=== PATIENT | male | born 1940 | race Caucasian/White ===

== ENCOUNTER 2019-10-31 17:50 | Emergency (ER) | payer MEDICARE, SELFPAY ==
[2019-10-31] VITALS (7 sets, daily range): BP systolic 143–172; BP diastolic 56–67; PULSE 60–82; RESP 16–20; TEMP 37.2–37.4; O2SAT 96–100
--- NOTE | ~2019-10-31 | XR_ITS ---
EXAMINATION: XR ribs LT 2V w CXR 2V INDICATION: Left chest pain, history of left lower lobectomy TECHNIQUE: PA and lateral views of the chest and 3 views of the left ribs were obtained. COMPARISON: 09/03/2018 FINDINGS: The lungs are free of acute opacities. Small left pleural effusion is unchanged. Calcified mediastinal and right hilar lymph nodes are consistent with old granulomatous disease. Again noted is chronic deformity of the left sixth rib, likely related to prior thoracotomy. No displaced rib fract ure is identified. IMPRESSION: 1. No acute cardiopulmonary abnormality or evidence of displaced rib fracture. Reviewed, dictated and finalized at location A.
--- NOTE | 2019-10-31 18:47 | ED.GENADULT ---
HPI - General Adult General Chief complaint: Upper Respiratory Infection Stated complaint: left lung pain Time Seen by Provider: 10/31/19 18:14 History of Present Illness HPI narrative: 79-year-old male presents emergency department with complaint of left lung pain. Patient reports onset of symptoms 4 days ago in which he saw his PCP and was prescribed Tessalon Perles and a Z-Isaiah. Patient reports he has been taking medications and has not noticed a difference in the cough. He reports coughing today and feeling pain in the left lung only when coughing. He denies any fever, has had some chills. He denies any recent travel or exposure to any one experiencing illness. He was referred to the ER by his PCP. Related Data Home Medications Medication Instructions Recorded Confirmed aspirin 325 mg tablet 325 mg PO .COMPLEX 10/09/19 calcium carbonate 390 mg calcium 2 PRN 10/09/19 (1,000 mg) tablet cetirizine 10 mg tablet 10 mg PO DAILY PRN tablet 10/09/19 clotrimazole-betamethasone 1 See Rx Instructions .ROUTE .COMPLEX 10/09/19 %-0.05 % topical cream diphenhydramine HCl 25 mg tablet 25 mg PO Q4-5H PRN 10/09/19 finasteride 5 mg tablet 5 mg PO DAILY 10/09/19 multivitamin 1 tablet PO .COMPLEX 10/09/19 omeprazole 20 mg tablet,delayed 20 mg PO .COMPLEX 10/09/19 release vit C 250 mg-E 200 unit-zinc 40 1 tablet PO .COMPLEX 10/09/19 mg-copper 1 [id number]-oilbaj capsule Allergies Allergy/AdvReac Type Severity Reaction Status Date / Time guaifenesin Allergy Severe THROAT Verified 10/10/19 12:47 SWELLING pseudoephedrine Allergy Severe THROAT Verified 10/10/19 12:47 SWELLING Review of Systems Review of Systems: Narrative: CONSTITUTIONAL: Denies fever, reports intermittent chills EYES: Denies visual changes, redness, or discharge. ENT: Denies rhinorrhea, congestion, sore throat, or otalgia. CARDIOVASCULAR: Denies chest pain, palpitations, or edema. RESPIRATORY: Reports cough and pain in left lung only when coughing. GASTROINTESTINAL: Denies abdominal pain, nasuea or vomiting. GENITOURINARY: Denies dysuria or hematuria. SKIN: Denies rash or itching. MUSCULOSKELETAL: Denies back pain, joint pain, or myalgia. NEUROLOGIC: Denies headache, numbness, or weakness. PSYCHIATRIC: Denies anxiety or depression. 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 HEAD: Normocephalic, atraumatic. EYES: Sclera anicteric ENT: Nares clear, no rhinorrhea or epistaxis. Mucous membranes moist. NECK: Supple. CHEST: Scattered wheezing throughout bilateral. no respiratory distress. Scar to left lower chronic shortness of breath back secondary to left lower lung lobectomy. HEART: Regular rate and rhythm. No murmur heard. Normal peripheral pulses. ABDOMEN: Soft, nontender, nondistended, normal active bowel sounds. EXTREMITIES: Normal range of motion. No edema. SKIN: Warm, dry, no rash. NEURO: No focal deficits. Alert and oriented x3. PSYCH: Normal mood and affect. Course Course Emergency Course: Increased aeration noted bilat lungs throughout. Pt states feels like helped to decrease the cough. No resp distress. Non-toxic appearance. Vital Signs Vital signs: Vit
[2019-10-31] MEDS: IPRATROPIUM BR 0.02% INH SOLN 0.5 MG/2.5 ML VIAL INHALATION (19:43)
[2019-10-31] MEDS: ALBUTEROL SULFATE NEB 2.5 MG/0.5 ML INH 5 MG INHALATION (19:43)
== END 2019-10-31 21:26 | disposition home or self-care (01) ==
PROVIDERS: PCP Emergency Medicine
DX: J06.9 Acute upper respiratory infection, unspecified (principal); N18.3 Chronic kidney disease, stage 3 (moderate)
CPT/HCPCS: 71045; 71101; 94640; 99283

== ENCOUNTER 2020-11-15 17:54 | Emergency (ER) | payer MEDICARE, SELFPAY ==
[2020-11-15 17:56] VITALS: BP 149/98; PULSE 86; RESP 18; TEMP 36.3; O2SAT 100
[2020-11-15 18:00] VITALS: BP 149/98; PULSE 86; RESP 18; TEMP 36.3; O2SAT 100
[2020-11-15 18:12] LABS: Basophils Percent Auto 0.1 % (0.2-1.2); Eosinophils Absolute Auto 0.1 K/mm3 (0-0.3); Eosinophils Percent Auto 1.1 % (0-4.4); Hematocrit 36.8 % (42.0-52.0); Immature Granulocyte Absolute 0.08 K/mm3 (0.00-0.031); Immature Granulocyte Percent A 0.8 % (0-0.5); Lymphocytes Absolute Auto 2.71 K/mm3 (0.9-3.2); Lymphocytes Percent Auto 26.8 % (18.3-44.2); Mean Corpuscular HGB Conc 32.6 g/dl (32-36); Mean Corpuscular Hemoglobin 28.4 pg (26-34); Mean Platelet Volume 11.1 fl (7.4-10.4); Monocytes Absolute Auto 1.3 K/mm3 (0.1-0.6); Monocytes Percent Auto 13.1 % (2.6-8.5); Neutrophils Absolute Auto 5.9 K/mm3 (1.3-6.7); Neutrophils Percent Auto 58.1 % (45.5-73.1); Platelet Count Result 194 k/mm3 (150-375); Red Blood Count 4.23 M/mm3 (4.6-6.20); Red Cell Distribution Width 11.9 % (11.5-14.5); White Blood Count 10.1 K/mm3 (4.5-10.0)
[2020-11-15 18:24] LABS: Add Urine Microscopic? YES; Appearance Urine Cloudy (Clear); Bacteria Urine Trace /hpf; Bilirubin Urine Negative (Negative); Color Urine Yellow (Yellow); Glucose Urine UA Negative (Negative); Ketones Urine Negative (Negative); Leukocyte Esterase Ur 3+ LEU/UL (Negative); Mucus Urine Few /lpf; Nitrate Urine Negative (Negative); Protein Urine 1+ mg/dL (Negative); Specific Grav Ur 1.018 (1.001-1.035); Urobilinogen Urine Negative mg/dL (<2.0); WBC Urine >75 /hpf
[2020-11-15 18:25] LABS: Blood Urine Negative (Negative)
[2020-11-15 18:28] LABS: Alanine Aminotransferase 17 U/L (4-50); Albumin Level 4.7 g/dL (3.5-5.1); Alkaline Phosphatase 61 U/L (38-126); Anion Gap 5 mmol/L (8-16); Aspartate Amino Transferase 21 U/L (17-59); Bilirubin,Total 0.3 mg/dL (0.2-1.3); Blood Urea Nitrogen 20 mg/dL (9-20); Calcium 10.8 mg/dL (8.4-10.2); Carbon Dioxide 37 mmol/L (22-30); Chloride 97 mmol/L (98-107); Estimated CRCL calculation 43 ml/min; Estimated Glomerular Filt Rate 53; Glucose 134 mg/dL (75-110); Lipase 163 U/L (23-300); Potassium 3.3 mmol/L (3.4-5.0); Sodium 139 mmol/L (137-145)
--- NOTE | 2020-11-15 18:48 | ED.ABDPAIN ---
HPI - Abdominal Pain General Chief Complaint: Abdominal Pain Stated Complaint: abd pain Time Seen by Provider: 11/15/20 18:04 History of Present Illness HPI narrative: Patient is an 80-year-old male who presents ER with abdominal pain. Intermittent over the last day. Initially improved with taking acid reflux medication but recently it has not responded to that type of therapy. Reports pain is intermittent. Unknown what aggravates it. Denies fevers or chills or sweats. He does note days been having some burning urination over the last day as well. He has had a urinary tract infection in the past but that is not a typical thing for him. No flank pain. Related Data Home Medications Medication Instructions Recorded Confirmed vit C 250 mg-vit E 90 mg-zinc 40 2 tablet PO 10/09/19 mg-copper 1 ya-fisbjc-aonibq capsule diphenhydramine HCl 25 mg tablet See Rx Instructions .ROUTE 01/28/20 .COMPLEX PRN cholecalciferol (vitamin D3) 25 25 mcg PO DAILY 06/10/20 mcg (1,000 unit) capsule aspirin 325 mg tablet 81 mg PO DAILY tablet 09/17/20 multivitamin 1 tablet PO tablet 09/17/20 omeprazole 20 mg tablet,delayed 20 mg PO BID tablet 09/17/20 release amlodipine 10 mg PO DAILY 11/15/20 Allergies Allergy/AdvReac Type Severity Reaction Status Date / Time guaifenesin Allergy Severe THROAT Verified 11/15/20 18:12 SWELLING pseudoephedrine Allergy Severe THROAT Verified 11/15/20 18:12 SWELLING Review of Systems Review of Systems: All systems reviewed & are unremarkable except as noted in HPI and below Constitutional: Constitutional: Denies chills, Denies fever(s) and Denies weakness Respiratory: Respiratory: Denies cough and Denies dyspnea Gastrointestinal: Gastrointestinal: Reports abdominal pain, Denies diarrhea, Denies nausea and Denies vomiting Genitourinary: Genitourinary: Denies hematuria, Reports dysuria and Denies urinary frequency [facility] Past Medical History Medical History (Updated 11/15/20 @ 18:51 by Cooper Thomas MD) Anemia BPH (benign prostatic hyperplasia) CKD (chronic kidney disease), stage III Surgical History Surgical History 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 HEAD: Normocephalic, atraumatic. CHEST: Clear to auscultation. No respiratory distress. HEART: Regular rate and rhythm. Normal peripheral pulses. ABDOMEN: Soft, nontender, nondistended. EXTREMITIES: Normal range of motion. No edema. SKIN: Warm, dry, no rash. NEURO: Alert and oriented x3. PSYCH: Normal mood and affect. Course Course Emergency Course: Patient informed results. Will treat UTI with oral antibiotics. No flank pain or nausea/vomiting. Kidney stone is not suspected given he does not have a history and his symptoms seem consistent with previous UTI. Vital Signs Vital signs: Vital Signs Temperature 97.3 F L 11/15/20 17:56 Pulse Rate 86 11/15/20 17:56 Respiratory Rate 18 11/15/20 17:56 Blood Pressure 149/98 H 11/15/20 17:56 Pulse Oximetry 100 11/15/20 17:56 Temperature 97.3 F L 11/15/20 18:00 Pulse Rate 86 11/15/20 18:00 Respiratory Rate 18 11/15/20 18:00 Blood Pressure 149/98 H 11/15/20 18:00 Pulse Oximetry
[2020-11-15] MEDS: CIPROFLOXACIN 500 MG TAB PO (19:03)
== END 2020-11-15 19:05 | disposition home or self-care (01) ==
PROVIDERS: Emergency Provider Emergency Medicine; PCP Emergency Medicine
DX: N39.0 Urinary tract infection, site not specified (principal); D64.9 Anemia, unspecified; N18.9 Chronic kidney disease, unspecified; N40.0 Benign prostatic hyperplasia without lower urinary tract symptoms; Z79.82 Long term (current) use of aspirin
CPT/HCPCS: 36415; 80053; 81001; 83690; 85025; 87077; 87086; 87088; 87147; 87181; 87186; 99283; A9270

== ENCOUNTER → 2021-01-10 03:16 | Outpatient (CLI) | payer MEDICARE, SELFPAY ==
[2021-01-10 19:46] LABS: SARS-CoV-2 RNA PCR Negative
== END ==
PROVIDERS: PCP Emergency Medicine; Visit Provider Internal Medicine Gastroenterology
DX: Z01.812 Encounter for preprocedural laboratory examination (principal); Z20.822 Contact with and (suspected) exposure to COVID-19
CPT/HCPCS: C9803; U0003; U0005

== ENCOUNTER 2021-01-13 00:27 | Day surgery (SDC) | payer MEDICARE, SELFPAY ==
[2021-01-08 09:16] VITALS: BMI 24.3
[2021-01-13 09:38] VITALS: BP 165/77; PULSE 83; RESP 16; TEMP 35.6; O2SAT 100; BMI 23.3
[2021-01-13] MEDS: LACTATED RINGERS 1,000 ML 150 ML IV CONT (09:48)
--- NOTE | 2021-01-13 10:17 | WPDANESEPPF ---
Anes - Initial Pre Proc Eval Procedure: Operation Date: 01/13/21 11:00 Proposed Procedures p Screening Colonoscopy - Deon Chavez MD Date/Time: 01/13/21 10:17 Surgeon: Deon Chavez MD Pre Op Diagnosis: hx colon polyps Patient Data Age: 80 Gender: M Height: 5 ft 11 in Weight: 76.1 kg Last Vital Signs Temp 96.1 F L 01/13/21 09:38 Pulse 83 01/13/21 09:38 Resp 16 01/13/21 09:38 BP 165/77 H 01/13/21 09:38 Pulse Ox 100 01/13/21 09:38 Allergies Allergy/AdvReac Type Severity Reaction Status Date / Time guaifenesin Allergy Severe THROAT Verified 01/13/21 09:37 SWELLING pseudoephedrine Allergy Severe THROAT Verified 01/13/21 09:37 SWELLING Home Medications Medication Instructions Recorded Confirmed Type vit C 250 mg-vit E 90 mg-zinc 40 1 tablet PO BID 10/09/19 01/08/21 History mg-copper 1 [id number]-eodttw-fskyhl capsule diphenhydramine HCl 25 mg tablet See Rx Instructions .ROUTE 01/28/20 01/08/21 History .COMPLEX PRN hydrochlorothiazide 25 mg tablet See Rx Instructions .ROUTE 05/16/20 01/08/21 Rx .COMPLEX #90 tablet losartan 100 mg tablet See Rx Instructions .ROUTE 05/16/20 01/08/21 Rx .COMPLEX #90 tablet cholecalciferol (vitamin D3) 25 25 mcg PO DAILY 06/10/20 01/08/21 History mcg (1,000 unit) capsule finasteride 5 mg tablet 5 mg PO DAILY #90 tablet 06/20/20 01/08/21 Rx aspirin 325 mg tablet 81 mg PO DAILY tablet 09/17/20 01/08/21 History multivitamin 1 tablet PO DAILY tablet 09/17/20 01/08/21 History omeprazole 20 mg tablet,delayed 20 mg PO BID tablet 09/17/20 01/08/21 History release amlodipine 10 mg PO DAILY 11/15/20 01/08/21 History sodium,potassium,mag sulfates 17.5 See Rx Instructions PO .COMPLEX 12/22/20 Rx gram-3.13 gram-1.6 gram oral soln #354 ml Patient hx anesthesia problems: none Family hx anesthesia problems: none [facility] Past Medical History Medical History (Updated 12/17/20 @ 10:14 by Angela Juárez) Anemia BPH (benign prostatic hyperplasia) CKD (chronic kidney disease), stage III Surgical History Surgical History 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 Family History Family History Father Family history of lung cancer, Onset Age: 66 Lung cancer Mother Family history of diabetes mellitus in first degree relative Diabetes mellitus Sibling Emphysema (subcutaneous) (surgical) resulting from a procedure Social History Social History Smoking status: Never smoker Second hand tobacco smoke exposure: No Alcohol intake: current Alcohol use details: socially Substance use: never Substance use type: does not use Living arrangements: with family Spiritual care concerns: No Anes - Eval Final PreProcedure Day of Procedure 01/13/21 10:17 Patient weight: normal Heart: regular rate and rhythm Lungs: clear to auscultation Airway: Mallampati scale class II Neurological: alert and oriented Last oral intake: >/= 8 hours ASA classification: III Emergent: no Anesthetic plan: proceed Anesthesia type and monitoring: general GIVS and standard monitoring Informed Consent: The patient's anesthetic plan and its attendant risks and benefits were discussed with the patient/family/POA. Questions were solicited and answers provided to the satisfaction of the patient/family/POA.
[2021-01-13 11:00] VITALS: BP 102/39; PULSE 58; RESP 14; O2SAT 100
[2021-01-13 11:10] VITALS: BP 105/71; PULSE 57; RESP 18; O2SAT 100
--- NOTE | 2021-01-13 11:17 | PM.HPGS ---
History of Present Illness History of Present Illness Consent: Risks, benefits, and alternatives have been discussed and questions answered. Patient agrees to proceed with procedure. Chief complaint: hx colon polyps Narrative: Jaylan Casillas Jr. is a 80 year old male here for screening colonoscopy, had polyp in previous one Review of Systems Constitutional: Constitutional: Denies headache(s) and Denies weakness Eyes: Eyes: Denies blurry vision ENT: Reports Normal hearing present, Denies headache(s) and Denies neck pain Cardiovascular: Cardiovascular: Denies chest pain and Denies dyspnea Respiratory: Respiratory: Denies dyspnea Gastrointestinal: Gastrointestinal: Reports no additional gastrointestinal complaints Genitourinary: Genitourinary: Denies dysuria Musculoskeletal: Musculoskeletal: Denies neck pain Integumentary/Breasts: Skin/Breast: Denies dry skin Neurologic: Reports Normal hearing present, Denies headache(s) and Denies weakness Psychiatric: Psychiatric: Denies anxiety Endocrine: Endocrine: Denies change in body appearance Hematologic/Lymphatic: Hematologic/Lymphatic: Denies easy bleeding Allergic/Immunologic: Allergic/Immunologic: Denies urticaria [facility] Past Medical History Medical History (Updated 12/17/20 @ 10:14 by Angela Juárez) Anemia BPH (benign prostatic hyperplasia) CKD (chronic kidney disease), stage III Surgical History Surgical History 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 Family History Family History Father Family history of lung cancer, Onset Age: 66 Lung cancer Mother Family history of diabetes mellitus in first degree relative Diabetes mellitus Sibling Emphysema (subcutaneous) (surgical) resulting from a procedure Social History Social History Smoking status: Never smoker Second hand tobacco smoke exposure: No Alcohol intake: current Alcohol use details: socially Substance use: never Substance use type: does not use Living arrangements: with family Spiritual care concerns: No Meds Home Medications and Allergies Home Medications Medication Instructions Recorded Confirmed Type vit C 250 mg-vit E 90 mg-zinc 40 1 tablet PO BID 10/09/19 01/08/21 History mg-copper 1 yi-xulxpi-rqocvj capsule diphenhydramine HCl 25 mg tablet See Rx Instructions .ROUTE 01/28/20 01/08/21 History .COMPLEX PRN hydrochlorothiazide 25 mg tablet See Rx Instructions .ROUTE 05/16/20 01/08/21 Rx .COMPLEX #90 tablet losartan 100 mg tablet See Rx Instructions .ROUTE 05/16/20 01/08/21 Rx .COMPLEX #90 tablet cholecalciferol (vitamin D3) 25 25 mcg PO DAILY 06/10/20 01/08/21 History mcg (1,000 unit) capsule finasteride 5 mg tablet 5 mg PO DAILY #90 tablet 06/20/20 01/08/21 Rx aspirin 325 mg tablet 81 mg PO DAILY tablet 09/17/20 01/08/21 History multivitamin 1 tablet PO DAILY tablet 09/17/20 01/08/21 History omeprazole 20 mg tablet,delayed 20 mg PO BID tablet 09/17/20 01/08/21 History release amlodipine 10 mg PO DAILY 11/15/20 01/08/21 History sodium,potassium,mag sulfates 17.5 See Rx Instructions PO .COMPLEX 12/22/20 Rx gram-3.13 gram-1.6 gram oral soln #354 ml Allergies Allergy/AdvReac Type Severity Reaction Status Date / Time guaifenesin Allergy Severe THROAT Verified 01/13/21 09:37 SWELLING pseudoephedrine Allergy Severe THROAT Verified 01/13/21 09:37 SWELLING Vital Signs Vital Signs - 24 hr 01/13/21 09:38 01/13/21 11:00 01/13/21 11:10 Temperature 96.1 F L Pulse Rate 83 58 L 57 L Respiratory Rate 16 14 18 Blood Pressure 165/77 H 102/39 L 105/71 Pulse Oximetry 100 100 100 Exam Const: General: comfortable and no acute distress HENMT: General nose exam: Normal nares present Eyes: Gene
[2021-01-13 11:20] VITALS: BP 109/70; PULSE 58; RESP 18; O2SAT 100
== END 2021-01-13 11:27 | disposition home or self-care (01) ==
PROVIDERS: PCP Emergency Medicine; Visit Provider Internal Medicine Gastroenterology
PROC: 0DJD8ZZ Inspection of Lower Intestinal Tract, Via Natural or Artificial Opening Endoscopic (ICD-10-PCS; CPT 45378; principal; 2021-01-13 11:00)
DX: Z12.11 Encounter for screening for malignant neoplasm of colon (principal); D12.2 Benign neoplasm of ascending colon; K63.5 Polyp of colon; K57.30 Diverticulosis of large intestine without perforation or abscess without bleeding; D64.9 Anemia, unspecified; N18.30 Chronic kidney disease, stage 3 unspecified; N40.0 Benign prostatic hyperplasia without lower urinary tract symptoms; Z79.82 Long term (current) use of aspirin
CPT/HCPCS: 45385; 88305; C9803; J2704; J7120; U0003; U0005

== ENCOUNTER 2021-01-16 10:50 | Outpatient (CLI) | payer MEDICARE, SELFPAY ==
--- NOTE | ~2021-01-16 | XR_ITS ---
EXAMINATION: [id number]_[id number]_CR EXAM DATE: 01/16/2021 11:02 INDICATION: Paresthesia of skin. TECHNIQUE: Cervical spine frontal, lateral, and open-mouth odontoid projections. There is no prior study for comparison. FINDINGS: There is moderate to severe disc disease at C4-5 and C6-7, moderate at C5-6. There is 2 th ere is anterolisthesis C6 on C7. Evidence of significant uncovertebral joint arthropathy at C4-5 and C6-7 probably causing significant neural foraminal stenosis. Overall moderate cervical facet arthropa thy. Prevertebral soft tissue and pre-dens space are within normal limits. The odontoid process is in tact. The lateral masses of C1 line up with C2. There is mild reversal of the normal cervical lordos is which may be degenerative, positional or spasm. IMPRESSION: 1. Moderate to severe cervical spondylosis. Reviewed, dictated and finalized at location B.
== END 2021-01-16 10:51 | disposition home or self-care (01) ==
LOC: ANHIMG 10:52
PROVIDERS: PCP Emergency Medicine; Visit Provider Emergency Medicine
DX: R20.0 Anesthesia of skin (principal); R20.2 Paresthesia of skin; M47.892 Other spondylosis, cervical region
CPT/HCPCS: 72040

== ENCOUNTER 2021-02-05 16:28 | Emergency (ER) | payer MEDICARE, SELFPAY ==
--- NOTE | ~2021-02-05 | XR_ITS ---
EXAMINATION: XR knee LT min 4V DATE: 02/05/2021 16:55 INDICATION: Left knee pain. TECHNIQUE: 4 views of left knee were obtained. COMPARISON: None. FINDINGS: Bone alignment is normal. No fracture. There is mild tricompartmental osteoarthritis charac terized by tiny marginal osteophytes. No knee joint effusion. IMPRESSION: 1. Mild left knee osteoarthritis. Reviewed, dictated and finalized at location A.
[2021-02-05 16:34] VITALS: BP 166/66; PULSE 97; RESP 16; TEMP 36.9; O2SAT 99
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
== END 2021-02-05 17:17 | disposition home or self-care (01) ==
PROVIDERS: Emergency Provider Emergency Medicine; PCP Emergency Medicine
DX: M23.92 Unspecified internal derangement of left knee (principal); M17.12 Unilateral primary osteoarthritis, left knee; D64.9 Anemia, unspecified; N40.0 Benign prostatic hyperplasia without lower urinary tract symptoms; I12.9 Hypertensive chronic kidney disease with stage 1 through stage 4 chronic kidney disease, or unspecified chronic kidney disease; N18.2 Chronic kidney disease, stage 2 (mild)
CPT/HCPCS: 73564; 99213; G0463

== ENCOUNTER 2021-02-22 15:42 | Observation (INO) | payer MEDICARE, SELFPAY ==
--- NOTE | ~2021-02-22 | CT_ITS ---
EXAMINATION: CT abdomen pelvis w con DATE: 02/22/2021 20:29 INDICATION: Incontinence. Burning with urination. TECHNIQUE: Computed tomography (CT) of the abdomen and pelvis was performed with 100 cc Omnipaque 350 intravenous contrast. The dose-length product was 408.79 mGy-cm. Automated exposure control and iter ative reconstruction technique were employed. COMPARISON: CT dated 03/07/2019 FINDINGS: Lung bases unremarkable. Heart size normal. No significant pleural or pericardial effusion. Small hiatal hernia. Mild atherosclerosis without aneurysm. No significant lymphadenopathy. Bilateral inguinal hernias. Right inguinal hernia contains nonobstruc maddie small bowel. Enlarged prostate gland. Diffuse bladder wall thickening. Small fat-containing umbil ical hernia. Mild lumbar spondylosis. No acute osseous abnormality. No free air or free fluid. There is a duodenal diverticulum abutting the right renal vein. IMPRESSION: 1. Diffuse bladder wall thickening, suspicious for cystitis. Correlate with urinalysis. 2: Bilateral inguinal hernias. Right inguinal hernia contains nonobstructed small bowel. 3: Small hiatal hernia. 4: Enlarged prostate gland. Reviewed, dictated and finalized at location A. IMPRESSION: 1. Diffuse bladder wall thickening, suspicious for cystitis. Correlate with uri nalysis. 2: Bilateral inguinal hernias. Right inguinal hernia contains nonobstructed sma ll bowel. 3: Small hiatal hernia. 4: Enlarged prostate gland.
[2021-02-22 16:04] VITALS: BP 164/50; PULSE 86; RESP 16; TEMP 37.3; O2SAT 99
[2021-02-22 18:32] LABS: Add Urine Microscopic? YES; Appearance Urine Cloudy (Clear); Bacteria Urine Trace /hpf; Bilirubin Urine Negative (Negative); Color Urine Amber (Yellow); Glucose Urine UA Negative (Negative); Ketones Urine Trace mg/dL (Negative); Leukocyte Esterase Ur 3+ LEU/UL (Negative); Mucus Urine Few /lpf; Nitrate Urine Negative (Negative); Protein Urine 2+ mg/dL (Negative); Specific Grav Ur 1.026 (1.001-1.035); WBC Urine >75 /hpf
[2021-02-22 18:33] LABS: Blood Urine Negative (Negative)
[2021-02-22 19:02] VITALS: BP 164/63; PULSE 81; RESP 18; O2SAT 99
--- NOTE | 2021-02-22 19:31 | ED.GENADULT ---
HPI - General Adult General Chief complaint: Urogenital-Male Stated complaint: painful urination and incont Time Seen by Provider: 02/22/21 19:03 Source: RN notes reviewed History of Present Illness HPI narrative: Patient presents emergency room from home for UTI. Patient states began of symptoms yesterday with dysuria as well as chills he states today he has had several episodes of incontinence as well as continued chills he denies any fevers, chest pain, shortness breath, abdominal pain nausea vomiting diarrhea flank pain or any other symptoms he states he did have a similar UTI approximately 3 months ago patient states he is taken no medication for the symptoms Related Data Home Medications Medication Instructions Recorded Confirmed vit C 250 mg-vit E 90 mg-zinc 40 1 tablet PO BID 10/09/19 02/05/21 mg-copper 1 [id number] capsule diphenhydramine HCl 25 mg tablet See Rx Instructions .ROUTE 01/28/20 02/05/21 .COMPLEX PRN cholecalciferol (vitamin D3) 25 25 mcg PO DAILY 06/10/20 02/05/21 mcg (1,000 unit) capsule aspirin 325 mg tablet 81 mg PO DAILY tablet 09/17/20 02/05/21 multivitamin 1 tablet PO DAILY tablet 09/17/20 02/05/21 omeprazole 20 mg tablet,delayed 20 mg PO BID tablet 09/17/20 02/05/21 release amlodipine 10 mg PO DAILY 11/15/20 02/05/21 Allergies Allergy/AdvReac Type Severity Reaction Status Date / Time guaifenesin Allergy Severe THROAT Verified 02/22/21 19:03 SWELLING pseudoephedrine Allergy Severe THROAT Verified 02/22/21 19:03 SWELLING Review of Systems Review of Systems: Narrative: Gen.: Denies fevers reports chills ENT: Denies congestion Respiratory: Denies shortness of breath or cough CV: Denies chest pain or palpitations GI: Denies abdominal pain nausea, emesis or diarrhea see HPI Musculoskeletal: Denies back pain or muscle pain Neuro: Denies numbness, tingling, weakness or focal weakness Skin: Denies rash Except as documented, all other systems reviewed and negative PMF Past Medical History Medical History (Updated 02/22/21 @ 21:41 by Harris Allan DO) Anemia BPH (benign prostatic hyperplasia) CKD (chronic kidney disease), stage III Surgical History Surgical History 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 Family History Family History Father Family history of lung cancer, Onset Age: 66 Lung cancer Mother Family history of diabetes mellitus in first degree relative Diabetes mellitus Sibling Emphysema (subcutaneous) (surgical) resulting from a procedure Social History Social History Smoking status: Never smoker Second hand tobacco smoke exposure: No Alcohol intake: current Alcohol use details: socially Substance use: never Substance use type: does not use Gender identity (if verbalized by the patient): Male Spiritual care concerns: No Exam Narrative: Exam Narrative: APPEARANCE: No acute distress, nontoxic, resting in bed EYES: EOMI HEENT: Normocephalic, atraumatic, OMM RESPIRATORY: No respiratory distress Clear to auscultation bilaterally with no rhonchi wheezing or rales. CARDIOVASCULAR: Regular rate and rhythm without murmurs rubs or gallops. ABDOMINAL: Soft, nontender, nondistended, no rebound or guarding MUSCULOSKELETAl: Moves all extremities. NEURO: Awake and alert. Following commands, speech normal, no focal deficits SKIN:: Warm, dry. No rashes lesions or abrasions PSYCHIATRIC: Normal affect/mood, Course Course Emergency Course: Discussed with Dr. Pavon presentation work-up agrees with admission at this time Discussed with patient and family results of workup and diagnosis. Discussed need for admission. Patient and family understand and agree to current treatment plan Vital Signs Vital signs: V
[2021-02-22 19:38] LABS: Basophils Percent Auto 0.1 % (0.2-1.2); Eosinophils Percent Auto 0.2 % (0-4.4); Hematocrit 34.3 % (42.0-52.0); Immature Granulocyte Absolute 0.34 K/mm3 (0.00-0.031); Immature Granulocyte Percent A 1.6 % (0-0.5); Lymphocytes Absolute Auto 1.38 K/mm3 (0.9-3.2); Lymphocytes Percent Auto 6.5 % (18.3-44.2); Mean Corpuscular HGB Conc 32.1 g/dl (32-36); Mean Corpuscular Hemoglobin 28.2 pg (26-34); Mean Corpuscular Volume 87.9 fl (80-100); Mean Platelet Volume 11.4 fl (7.4-10.4); Monocytes Absolute Auto 3.5 K/mm3 (0.1-0.6); Monocytes Percent Auto 16.4 % (2.6-8.5); Neutrophils Absolute Auto 16.1 K/mm3 (1.3-6.7); Neutrophils Percent Auto 75.2 % (45.5-73.1); Platelet Count Result 149 k/mm3 (150-375); Red Cell Distribution Width 12.5 % (11.5-14.5); White Blood Count 21.4 K/mm3 (4.5-10.0)
[2021-02-22 19:46] LABS: Alanine Aminotransferase 16 U/L (4-50); Albumin Level 4.4 g/dL (3.5-5.1); Alkaline Phosphatase 59 U/L (38-126); Anion Gap 12 mmol/L (8-16); Aspartate Amino Transferase 20 U/L (17-59); Bilirubin,Total 0.8 mg/dL (0.2-1.3); Blood Urea Nitrogen 23 mg/dL (9-20); Calcium 9.6 mg/dL (8.4-10.2); Carbon Dioxide 25 mmol/L (22-30); Chloride 95 mmol/L (98-107); Estimated CRCL calculation 42 ml/min; Estimated Glomerular Filt Rate 53; Glucose 128 mg/dL (75-110); Potassium 3.7 mmol/L (3.4-5.0); Sodium 132 mmol/L (137-145)
[2021-02-22 20:36] VITALS: BP 152/84; PULSE 86; RESP 17; O2SAT 98
[2021-02-22] MEDS: SODIUM CHLORIDE 0.9% IV 1,000 ML 999 ML IV CONT (20:36)
[2021-02-22 20:58] LABS: Lactic Acid Reflex 1.7 mmol/L (0.7-2.1)
[2021-02-22 22:24] VITALS: BP 152/68; PULSE 80; RESP 17; O2SAT 98
--- NOTE | 2021-02-22 22:56 | ADMGEN ---
This patient, Jaylan Casillas Jr., was admitted to [facility] Surg Room 317-02. Patient/family oriented to hospital policies and general routines including ID bracelet, bed and alarms, visiting hours, pain management, procedures, bathroom and other care routines, personal items, smoking policy, room service/diet, and visiting hours. Information on how to activate the Rapid Response Team has been discussed. Patient/Family are encouraged to report perceived risks to care and to ask questions if they do not understand what they are told or what they should do.
[2021-02-22 22:58] VITALS: BP 137/50; PULSE 70; RESP 16; TEMP 37.2; O2SAT 99; BMI 23.8
[2021-02-23] MEDS: SODIUM CHLORIDE 0.9% IV 1,000 ML 80 ML IV CONT (01:39)
--- NOTE | 2021-02-23 04:22 | PM.IMHP ---
H&P: HPI History of Present Illness Date/Time: 02/23/21 04:22 Chief Complaint: loss of bladder control, burning with urinary Narrative: 81-year-old male with past medical history of BPH, prior urinary tract infections, and essential hypertension who presented to the ER with urinary incontinence and dysuria for over 24 hours. he reports that he has been feeling run down for 3 days. He started having chills today and had several episodes of incontinence. He denied any measured fevers. He did not have any hematuria. He did notice that his urine was foul smelling. He reports that his dysuria has resolved since he was admitted to the hospital. He has had no further episodes of urinary incontinence since admission. He is reporting that he is eager to be discharged. He denies any other ill symptoms such as abdominal pain, nausea, vomiting or diarrhea. He has not noticed any flank pain. At the time of my evaluation the patient stated that his last urinary tract infection was in 2019. In the ER he had recall that his last urinary tract infection was 3 months ago. His last UTI grew out coag-negative staph that was pansensitive. He reports that his dysuria and urinary incontinence has resolved since admission. He reports that this foul smell to his urine has also resolved. He reports he has not had a bowel movement in about 3 days but relates this to decreased appetite over the last several days. He reports that he did not actually eat anything prior to coming to the ER. Review of Systems Review of Systems: Narrative: 12 systems were reviewed with pertinent positives and negatives per HPI. Except as documented in the HPI, all other systems were reviewed and are negative. 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 Brando Ramos Code status: Full code Healthcare power of adjunct lecturer: Split between the patient's 3 sons. Smoking status: Never smoker Second hand tobacco smoke exposure: No Alcohol intake: current Drinks per week: 1 Alcohol use details: He drinks 2-3 glasses a wine a week. Substance use: never Substance use type: does not use Additional living arrangements comments: He lives with his of 63 years. They have 3 sons. Occupation/Education: retired Additional occupation/education comments: He is retired business professional. Gender identity (if verbalized by the patient): Male Spiritual care concerns: No Meds Home Medications and Allergies Home Medications Medication Instructions Recorded Confirmed Type vit C 250 mg-vit E 90 mg-zinc 40 1 tablet PO BID 10/09/19 02/23/21 History mg-copper 1 [id number]-lhlwaj capsule diphenhydramine HCl 25 mg tablet 25 mg PO Q6-12H PRN 01/28/20 02/23/21 History cholecalciferol (vitamin D3) 25 25 mcg PO DAILY 06/10/20 02/23/21 History mcg (1,000 unit) capsule finasteride 5 mg tablet 5 mg PO DAILY #90 tablet 06/20/20 02/23/21 Rx multivitamin 1 tablet PO DAILY tablet 09/17/20 02/23/21 History omeprazole 20 mg tablet,delayed 20 mg PO BID tablet 09/17/20 02/23/21 History release amlodipine 10 mg PO DAILY 11/15/20 02/23/21 Histo
[2021-02-23 06:00] VITALS: BP 126/48; PULSE 72; RESP 16; TEMP 36.4; O2SAT 98
[2021-02-23 06:59] LABS: Basophils Percent Auto 0.1 % (0.2-1.2); Hematocrit 29.2 % (42.0-52.0); Hemoglobin 9.8 g/dL (14.0-18.0); Immature Granulocyte Absolute 0.18 K/mm3 (0.00-0.031); Immature Granulocyte Percent A 1.1 % (0-0.5); Immature Platelet Fraction Pct 6.9 % (0.9-11.2); Lymphocytes Absolute Auto 1.58 K/mm3 (0.9-3.2); Lymphocytes Percent Auto 10.1 % (18.3-44.2); Mean Corpuscular HGB Conc 33.6 g/dl (32-36); Mean Corpuscular Hemoglobin 28.7 pg (26-34); Mean Corpuscular Volume 85.4 fl (80-100); Mean Platelet Volume 11.8 fl (7.4-10.4); Monocytes Absolute Auto 2.3 K/mm3 (0.1-0.6); Monocytes Percent Auto 14.6 % (2.6-8.5); Neutrophils Absolute Auto 11.6 K/mm3 (1.3-6.7); Neutrophils Percent Auto 74.1 % (45.5-73.1); Platelet Count Result 124 k/mm3 (150-375); Red Blood Count 3.42 M/mm3 (4.6-6.20); Red Cell Distribution Width 12.5 % (11.5-14.5); White Blood Count 15.7 K/mm3 (4.5-10.0)
[2021-02-23 07:05] LABS: Alanine Aminotransferase 13 U/L (4-50); Albumin Level 3.5 g/dL (3.5-5.1); Alkaline Phosphatase 47 U/L (38-126); Anion Gap 7 mmol/L (8-16); Aspartate Amino Transferase 16 U/L (17-59); Bilirubin,Total 0.5 mg/dL (0.2-1.3); Blood Urea Nitrogen 20 mg/dL (9-20); Calcium 8.5 mg/dL (8.4-10.2); Carbon Dioxide 24 mmol/L (22-30); Chloride 102 mmol/L (98-107); Estimated CRCL calculation 42 ml/min; Estimated Glomerular Filt Rate 53; Glucose 100 mg/dL (75-110); Potassium 3.5 mmol/L (3.4-5.0); Sodium 133 mmol/L (137-145)
[2021-02-23 08:00] VITALS: O2SAT 98
[2021-02-23] MEDS: MULTIVITAMINS THERAPEUTIC TAB (*BKC) 1 TABLET PO (08:50)
[2021-02-23] MEDS: PANTOPRAZOLE 40 MG TABLET PO ×2 (08:50→17:32)
[2021-02-23] MEDS: amLODIPine BESYLATE 5 MG TABLET 10 MG PO (08:50)
[2021-02-23] MEDS: OPTI-GEN TAB 1 TABLET PO ×2 (08:50→17:31)
[2021-02-23] MEDS: FINASTERIDE 5 MG TABLET PO (08:50)
[2021-02-23] MEDS: ASPIRIN 81 MG ENTERIC TABLET PO (08:50)
[2021-02-23] MEDS: LOSARTAN POTASSIUM 100 MG TABLET PO (08:50)
[2021-02-23] MEDS: CHOLECALCIFEROL 1,000 UNITS TABLET 1000 UNITS PO (08:50)
[2021-02-23 09:05] LABS: Iron 23 ug/dL (49-181)
[2021-02-23 09:08] LABS: Transferrin 222 mg/dL (206-381)
[2021-02-23 09:08] LABS: Immature Reticulocyte Fraction 10.1 % (3.0-15.9); Reticulocyte Hemoglobin Conten 34.2 pg (28.2-35.7); Reticulocyte Percent 1.19 % (0.7-4.3); Reticulocytes Absolute 0.04 B/L (32.2-175.7)
[2021-02-23 09:15] LABS: Percent Iron Saturation 7 % (20-50)
[2021-02-23 10:08] LABS: Folic Acid 19.9 ng/mL (2.76->20)
--- NOTE | 2021-02-23 13:37 | PM.IMPN ---
Progress Note: A&P Assessment and Plan (1) Acute UTI: Code(s): N39.0 - Urinary tract infection, site not specified Status: Acute Assessment and Plan: UA suspicious for UTI - continue Levaquin - monitor urine and blood cultures and adjust medications as appropriate - white blood cell count improving 21.4 on admission now down to 15.7 - hemodynamically stable (2) BPH (benign prostatic hyperplasia): Qualifiers: Lower urinary tract symptom presence: symptoms absent Qualified Code(s): N40.0 - Benign prostatic hyperplasia without lower urinary tract symptoms Code(s): N40.0 - Benign prostatic hyperplasia without lower urinary tract symptoms Status: Acute Assessment and Plan: continue finasteride and Flomax (3) Essential hypertension: Code(s): I10 - Essential (primary) hypertension Status: Acute Assessment and Plan: last blood pressure 126/48 - no signs and symptoms of lightheadedness or dizziness - continue amlodipine and losartan (4) GERD (gastroesophageal reflux disease): Code(s): K21.9 - Gastro-esophageal reflux disease without esophagitis Status: Inactive Assessment and Plan: continue Protonix Time Spent With Patient Time with patient: 25 - 35 minutes Subjective Date/time seen: 02/23/21 13:37 Interval history: Pt is a 81 y/o male here for UTI. patient was seen today and states he is still straining a bit to urinate but overall feeling better. He has not had any more incontinence. he sees a urologist here for BPH and takes tamsulosin and finasteride. He does not think he is feeling weak but the nurse says seemed a little weak. He denies chest pain, sob, fevers, chills, nausea, vomiting, abdominal pain, or leg swelling. Review of Systems Review of Systems: All systems reviewed & are unremarkable except as noted in HPI and below Exam Narrative: Exam Narrative: General: Well developed well nourished patient in NAD HEENT: normocephalic Neck: supple Neuro: Alert and oriented. no obvious neurological deficits CV:RRR Resp:CTA Abd: Soft, non distended. No pain to palpation. Positive bowel sounds Extremities: No swelling, erythema, or pain to palpation. Objective Data Vital Signs Vital Signs: Vital Signs - 24 hr 02/22/21 16:04 02/22/21 19:02 02/22/21 20:36 Temperature 99.2 F Pulse Rate 86 81 86 Respiratory Rate 16 18 17 Blood Pressure 164/50 H 164/63 H 152/84 H Pulse Oximetry 99 99 98 02/22/21 22:24 02/22/21 22:58 02/23/21 06:00 Temperature 98.9 F 97.5 F L Pulse Rate 80 70 72 Respiratory Rate 17 16 16 Blood Pressure 152/68 H 137/50 L 126/48 L Pulse Oximetry 98 99 98 02/23/21 08:00 Temperature Pulse Rate Respiratory Rate Blood Pressure Pulse Oximetry 98 Intake/Output Intake/Output: Intake & Output 02/20/21 02/21/21 02/22/21 02/23/21 23:59 23:59 23:59 23:59 Intake Total 1150 490 Output Total 150 100 Balance 1000 390 Meds/Results Medications: Active Medications Generic Name Dose Route Start Last Admin Trade Name Freq PRN Reason Stop Dose Admin Amlodipine Besylate 10 mg 02/23/21 09:00 02/23/21 08:50 Amlodipine Besylate 5 Mg Tablet PO 10 mg DAILY AMY Administration Aspirin 81 mg 02/23/21 09:00 02/23/21 08:50 Aspirin 81 Mg Enteric Tablet PO 81 mg DAILY AMY Administration Finasteride 5 mg 02/23/21 09:00 02/23/21 08:50 Finasteride 5 Mg Tablet PO 5 mg DAILY AMY Administration Levofloxacin/Dextrose 750 mg in 150 mls @ 100 mls/hr 02/24/21 18:00 Levaquin 750 Mg/D5w 150 Ml IVPB Q48H AMY Sodium Chloride 1,000 mls @ 80 mls/hr 02/22/21 21:20 02/23/21 01:39 Normal Saline Iv IV CONT 80 mls/hr .[id number] AMY Administration Losartan Potassium 100 mg 02/23/21 09:00 02/23/21 08:50 Losartan Potassium 100 Mg Tablet PO 100 mg DAILY AMY Administration Multivitamins Therapeutic 1 tablet 02/23/21
[2021-02-23 14:00] VITALS: BP 126/64; PULSE 69; RESP 16; TEMP 36.7; O2SAT 98
[2021-02-23 20:00] VITALS: PULSE 64; RESP 18; O2SAT 97
[2021-02-23 22:00] VITALS: BP 103/36; PULSE 64; RESP 18; TEMP 36.5; O2SAT 97
[2021-02-23] MEDS: diphenhydrAMINE HCl CAP 25 MG CAPSULE PO (23:40)
[2021-02-24 06:00] VITALS: BP 147/76; PULSE 81; RESP 18; TEMP 35.6; O2SAT 95
[2021-02-24 07:06] LABS: Basophils Percent Auto 0.1 % (0.2-1.2); Hematocrit 32.1 % (42.0-52.0); Hemoglobin 10.5 g/dL (14.0-18.0); Immature Granulocyte Absolute 0.06 K/mm3 (0.00-0.031); Immature Granulocyte Percent A 0.7 % (0-0.5); Immature Platelet Fraction Pct 6.8 % (0.9-11.2); Lymphocytes Absolute Auto 1.21 K/mm3 (0.9-3.2); Lymphocytes Percent Auto 13.6 % (18.3-44.2); Mean Corpuscular HGB Conc 32.7 g/dl (32-36); Mean Corpuscular Hemoglobin 28.5 pg (26-34); Mean Corpuscular Volume 87.2 fl (80-100); Mean Platelet Volume 11.6 fl (7.4-10.4); Monocytes Percent Auto 11.2 % (2.6-8.5); Neutrophils Absolute Auto 6.6 K/mm3 (1.3-6.7); Neutrophils Percent Auto 74.4 % (45.5-73.1); Platelet Count Result 140 k/mm3 (150-375); Red Blood Count 3.68 M/mm3 (4.6-6.20); Red Cell Distribution Width 12.5 % (11.5-14.5); White Blood Count 8.9 K/mm3 (4.5-10.0)
[2021-02-24 07:10] LABS: Anion Gap 11 mmol/L (8-16); Blood Urea Nitrogen 17 mg/dL (9-20); Calcium 9.1 mg/dL (8.4-10.2); Carbon Dioxide 23 mmol/L (22-30); Chloride 105 mmol/L (98-107); Estimated CRCL calculation 39 ml/min; Estimated Glomerular Filt Rate 49; Glucose 109 mg/dL (75-110); Potassium 3.5 mmol/L (3.4-5.0); Sodium 139 mmol/L (137-145)
[2021-02-24 08:00] VITALS: O2SAT 95
[2021-02-24] MEDS: FINASTERIDE 5 MG TABLET PO (08:14)
[2021-02-24] MEDS: MULTIVITAMINS THERAPEUTIC TAB (*BKC) 1 TABLET PO (08:14)
[2021-02-24] MEDS: amLODIPine BESYLATE 5 MG TABLET 10 MG PO (08:14)
[2021-02-24] MEDS: CHOLECALCIFEROL 1,000 UNITS TABLET 1000 UNITS PO (08:14)
[2021-02-24] MEDS: LOSARTAN POTASSIUM 100 MG TABLET PO (08:14)
[2021-02-24] MEDS: OPTI-GEN TAB 1 TABLET PO (08:14)
[2021-02-24] MEDS: ASPIRIN 81 MG ENTERIC TABLET PO (08:14)
[2021-02-24] MEDS: PANTOPRAZOLE 40 MG TABLET PO (08:15)
[2021-02-24 09:44] VITALS: O2SAT 95
[2021-02-24 10:13] LABS: IFOB Positive Control Positive; Immunochemical Fecal Occult Bl Negative (N)
--- NOTE | 2021-02-24 12:41 | PM.DS ---
DS: Admitting Diagnosis Admitting Diagnosis Admitting Diagnosis: UTI DS: Discharge Diagnosis Discharge Diagnosis (1) Acute UTI: Code(s): N39.0 - Urinary tract infection, site not specified Status: Acute Assessment and Plan: urine culture grew Klebs aerogenes (enterobacter) - this was sensitive to Levaquin and he was discharged on that. - Patient's symptoms and white blood cell count improved with treatment - blood cultures have no growth to date and will be monitored until finalized - patient has an urologist and he should follow-up with him (2) BPH (benign prostatic hyperplasia): Qualifiers: Lower urinary tract symptom presence: symptoms absent Qualified Code(s): N40.0 - Benign prostatic hyperplasia without lower urinary tract symptoms Code(s): N40.0 - Benign prostatic hyperplasia without lower urinary tract symptoms Status: Acute Assessment and Plan: continue finasteride and Flomax (3) Essential hypertension: Code(s): I10 - Essential (primary) hypertension Status: Acute Assessment and Plan: last blood pressure 125/56 - continue amlodipine and losartan (4) GERD (gastroesophageal reflux disease): Code(s): K21.9 - Gastro-esophageal reflux disease without esophagitis Status: Inactive Assessment and Plan: continue home meds DS: Summary Hospital Course Hospital Course: Patient is an 81-year-old male with a history of BPH and hypertension who presented emergency room for dysuria, chills and incontinence. Vitals in the ER were temperature 99.2?, pulse 86, respiratory rate 16, blood pressure 164/50, pulse ox 99 on room air. UA suspicious for UTI. Initial white blood cell count 21.4, hemoglobin 11.0, hematocrit 34.3, platelets 149. patient was admitted to the hospitalist service and started on Levaquin. He had a CT of his abdomen pelvis which showed diffuse bladder wall thickening suspicious for cystitis, bilateral inguinal hernias, enlarged prostate. Patient improved with antibiotic treatment. Physical therapy saw him and his weakness had improved. He states he sees Dr. Reed for his BPH and I recommended that he follow-up with him. urine culture as above. The day of discharge he was feeling back to baseline. He was educated about the worrisome signs and symptoms to come back to emergency room for and was discharged stable condition. Status at Discharge Functional status at discharge: independent ambulation Overall status at discharge: patient is back to baseline Time Spent with Patient Time attestation: Total time spent providing and/or coordinating discharge services:36 min Time spent: Greater than 30 minutes Exam Narrative: Exam Narrative: General: Well developed well nourished patient in NAD HEENT: normocephalic Neck: supple Neuro: Alert and oriented. no obvious neurological deficits CV:RRR Resp:CTA Abd: Soft, non distended. No pain to palpation. Positive bowel sounds Extremities: No swelling, erythema, or pain to palpation. DS: Data Data Completed and Pending Labs on day of discharge: Labs from last 24 hours 02/24/21 02/24/21 02/24/21 09:46 06:27 06:27 WBC 8.9 RBC 3.68 L Hgb 10.5 L Hct 32.1 L MCV 87.2 MCH 28.5 MCHC 32.7 RDW 12.5 Plt Count 140 L MPV 11.6 H Immature Gran % (Auto) 0.7 H Neut % (Auto) 74.4 H Lymph % (Auto) 13.6 L Mcminn % (Auto) 11.2 H Eos % (Auto) 0.0 Baso % (Auto) 0.1 L Lymph # (Auto) 1.21 Mcminn # (Auto) 1.0 H Eos # (Auto) 0.0 Baso # (Auto) 0.0 Abs Immat Gran (auto) 0.06 H Absolute Neuts (auto) 6.6 Absolute Nucleated RBC 0.0 Nucleated RBC % 0.0 % Immature Plt Fraction 6.8 Sodium 139 Potassium 3.5 Chloride 105 Carbon Dioxide 23 Anion Gap 11 BUN 17 Creatinine 1.40 H Estim Creat Clear Calc 39 Estimated GFR 49 L Glucose 109 Calcium 9.1 Stl Occul
[2021-02-24 14:00] VITALS: BP 125/56; PULSE 53; RESP 18; TEMP 36.1; O2SAT 95
--- NOTE | 2021-03-02 13:39 | PC.NURSE ---
Blood cx are negative.
== END 2021-02-24 16:50 | disposition home or self-care (01) ==
LOC: ANHED 19:31 → ANH3MEDSUR 21:41
PROVIDERS: Emergency Medicine; Physician Assistant; Admitting Provider Internal Medicine; Emergency Provider Emergency Medicine; PCP Emergency Medicine; Visit Provider Internal Medicine
DX: N39.0 Urinary tract infection, site not specified (principal); N40.0 Benign prostatic hyperplasia without lower urinary tract symptoms; D72.829 Elevated white blood cell count, unspecified; B96.1 Klebsiella pneumoniae [K. pneumoniae] as the cause of diseases classified elsewhere; D64.9 Anemia, unspecified; I12.9 Hypertensive chronic kidney disease with stage 1 through stage 4 chronic kidney disease, or unspecified chronic kidney disease; N18.30 Chronic kidney disease, stage 3 unspecified; K21.9 Gastro-esophageal reflux disease without esophagitis; Z79.82 Long term (current) use of aspirin; Z87.11 Personal history of peptic ulcer disease; Z90.2 Acquired absence of lung [part of]
CPT/HCPCS: 36415; 74177; 80048; 80053; 81001; 82274; 82607; 82728; 82746; 83540; 83550; 83605; 84466; 85025; 85046; 85055; 87040; 87077; 87086; 87088; 87186; 96365; 97161; 99285; A9270; G0378; J1956; J7030; Q9967

== ENCOUNTER 2021-04-02 11:00 | Outpatient (RCR) | payer MEDICARE, SELFPAY ==
--- NOTE | 2021-02-02 14:43 | PTOPEVAL ---
PHYSICAL THERAPY EVALUATION Thank you for referring Jaylan Casillas Jr. to [facility].? Andrew was evaluated for the dx of cervical spondylosis with radiculopathy. The patient is scheduled to be seen for therapy? 1x/week for 4 weeks( less frequent per pt request due to costs). Please review, sign, date and return this plan of care JANET. I agree with and certify that the following plan of care is medically necessary. Referring Physician Date Attending Provider: Brando Ramos MD *PT Outpatient Evaluation Start: 02/02/21 13:18 Freq: Status: Active Protocol: Document 02/02/21 13:27 MLV (Rec: 02/02/21 14:19 MLV [id number]) Therapy Assessment Status Assessment Status Evaluation Evaluation Information Problem Diagnosis cervical spondylosis Onset 4 months ago Cause no injury Additional Evaluation Detail The patient began having tingling/numbness at his left shoulder area that comes/goes. The patient notes the symptoms with sitting or doing something physical with his arms. He also can get symptoms with sleeping that affects normal quality of sleep. The patient is retired but quite active. The patient rides his bicycle regularly and does house projects. The patient has a hx of left shoulder trouble more than 5 years ago, got an injection and the symptoms were relieved. Diagnostic Tests X-Rays For This Problem Yes: cervical spondylosis Previous Treatments Previous Treatments For This Problem PT for neck pain, years ago, and had relief Pain Assessment Timing of Pain Assessment Timing of Pain Assessment Assessment Pain Scale Pain Scale Used Numeric (1 - 10) Self Report Pain Assessment Left Shoulder(s) Reported Pain Level 0 Pain Description Numbness,Tingling Radicular Pain Location 5-6 x a day/daily with normal activity for symptoms Pain Frequency Acute Pain Score Pain Score 0: Self Report Interventions Used Interventions Used By Clinicians Education,Heat,Traction Pain Relief Interventions Used By None Patient Cervical and Lumbar ROM Cervical ROM Cervical Flexion (0-60) 56 Query Text:Active in Degrees Cervical Extension (0-70) 36 Query Text:Active
--- NOTE | 2021-02-27 11:26 | PCPTNOTE ---
Patient called & cancelled scheduled appointment this date due to illness.
--- NOTE | 2021-03-06 11:49 | PTOPEVAL ---
PHYSICAL THERAPY RE-EVALUATION Thank you for referring Jaylan Casillas Jr. to [facility].? Andrew was re-assessed for the dx of left shoulder tingling with goals partially met. The patient is scheduled to be seen for therapy? 1 x/week for 4 weeks(less frequent per pt request due to cost issue). Please review, sign, date and return this plan of care JANET. I agree with and certify that the following plan of care is medically necessary. Referring Physician Date Attending Provider: Brando Ramos MD *PT Outpatient Re-Evaluation Start: 02/02/21 13:18 Freq: Status: Active Protocol: Document 03/06/21 10:49 MLV (Rec: 03/06/21 11:31 MLV [id number]) Therapy Assessment Status Assessment Status Re-evaluation Evaluation Information Problem Diagnosis cervical spondylosis Cause no injury Additional Evaluation Detail Patient reports being hospitalized and ill for about 6 days just recently-was unable to work on shoulder therapy for last week or so. The patient feels his shoulder symptoms are overall better at the neck but the tingling has had minimal change. Patient feels the electrodes really helped with some lingering relief following. Patient feels he needs more therapy to try to eliminate the tingling in his arm. Subjective Information Pt reports limited compliance Query Text:As Reported By Patient/ with HEP and agrees he needs Family to improve so to get the benefit from therapy. Pain Assessment Timing of Pain Assessment Timing of Pain Assessment Assessment Pain Scale Pain Scale Used Numeric (1 - 10) Self Report Pain Assessment Left Shoulder(s) Reported Pain Level 6 Pain Description Tingling Radicular Pain Location tingling from elbow to hand or wrist Pain Frequency Intermittent Pain Score Pain Score 6: Self Report Interventions Used Interventions Used By Clinicians Education,Electrical Stimulation,Exercise,Heat Pain Relief Interventions Used By Position Change Patient Cervical and Lumbar ROM Cervical ROM Cervical Flexion (0-60) 65 Query Text:Active in Degrees Cervical Extension (0-70) 36 Query Text:Active in Degrees Cervical Lateral Flexion Right (0-50) 22 Query Text:Pass
--- NOTE | 2021-04-02 13:27 | PTOPEVAL ---
PHYSICAL THERAPY DISCHARGE Thank you for referring Jaylan Casillas Jr. to [facility].? The patient has completed 8 visits for the dx of cervical spondylosis with left arm radiculopathy. Please review, sign, date and return this plan of care JANET. I agree with and certify that the following plan of care is medically necessary. Referring Physician Date Attending Provider: Brando Ramos MD *PT Outpatient Discharge Start: 02/02/21 13:18 Freq: Status: Active Protocol: Document 04/02/21 11:01 [facility] (Rec: 04/02/21 11:55 [facility] [id number]) Assessment Status Discharge Evaluation Information Problem Diagnosis cervical spondylosis Cause no injury Additional Evaluation Detail The patient reports he is feeling better with more neck/ shoulder mobility, decreased frequency of tingling at left arm, but still has occasional tingling. The tingling is more apt to occur with shaving or looking at a screen. The patient wants to continue his exercises a while to see if he can avoid further intervention but agrees that if he has an increase, he will seek MD follow up. Pt feels an injection may help if he can't get relief on his own, which has worked in the past. Pain Assessment Timing of Pain Assessment Timing of Pain Assessment Assessment Pain Scale Pain Scale Used Numeric (1 - 10) Self Report Pain Assessment Left Shoulder(s) Reported Pain Level 0 Other Pain Description mild tingling lasting less than 5min when shaving and watching tv Pain Aggravating Factors Exercise/Activity Pain Behaviors None Pain Score Pain Score 0: Self Report Interventions Used Interventions Used By Clinicians Electrical Stimulation,Heat, Mobilization,Manual Therapy Techniques Pain Relief Interventions Used By Exercise,Position Change Patient Cervical and Lumbar ROM Cervical ROM Cervical Flexion (0-60) 65 Query Text:Active in Degrees Cervical Extension (0-70) 51 Query Text:Active in Degrees Cervical Lateral Flexion Right (0-50) 26 Query Text:Passive in Degrees Cervical Lateral Flexion Left (0-50) 24 Query Text:Passive in Deg
== END 2021-04-27 13:05 | disposition home or self-care (01) ==
LOC: ANHPT 11:00
PROVIDERS: PCP Emergency Medicine; Visit Provider Emergency Medicine
DX: M47.812 Spondylosis without myelopathy or radiculopathy, cervical region (principal)
CPT/HCPCS: 97012; 97014; 97110; 97140; 97162; G0283

== ENCOUNTER 2022-02-07 10:25 | Emergency (ER) | payer MEDICARE, SELFPAY ==
[2022-02-07 10:34] VITALS: BP 155/67; PULSE 99; RESP 16; TEMP 36.6; O2SAT 99
--- NOTE | 2022-02-07 10:55 | ED.GENADULT ---
HPI - General Adult General Chief complaint: Upper Respiratory Infection Stated complaint: sore throat,ear prob History of Present Illness HPI narrative: Patient is a an 82-year-old male who [facility] for evaluation of urinary symptoms that have been present for 3 days. Additionally, he reports sore throat, dry cough, and muffled hearing. Aspirin helps symptoms. Nothing worsens symptoms. Denies known exposure to sick contacts. Patient reports he is fully vaccinated to COVID and influenza. Of note, patient is scheduled to see his PCP in 3 days. Related Data Home Medications Medication Instructions Recorded Confirmed vit C 250 mg-vit E 90 mg-zinc 40 1 tablet PO BID 10/09/19 02/07/22 mg-copper 1 [id number] capsule (PreserVision AREDS-2) multivitamin 1 tablet PO DAILY 09/17/20 02/07/22 omeprazole 20 mg tablet,delayed 20 mg PO BID 09/17/20 02/07/22 release aspirin 81 mg tablet,delayed 1 mg PO DAILY 02/23/21 02/07/22 release Allergies Allergy/AdvReac Type Severity Reaction Status Date / Time guaifenesin Allergy Severe THROAT Verified 02/07/22 10:36 SWELLING pseudoephedrine Allergy Severe THROAT Verified 02/07/22 10:36 SWELLING PMFSH Past Medical History Medical History Anemia BPH (benign prostatic hyperplasia) CKD (chronic kidney disease), stage III Esophageal stricture Essential hypertension Essential hypertension Gastric ulcer GERD (gastroesophageal reflux disease) Surgical History Surgical History History of bilateral cataract extraction History of colonoscopy with polypectomy (01/2021) 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 Brando Ramos Code status: Full code Healthcare power of claim attorney: Split between the patient's 3 sons. Smoking status: Never smoker Second hand tobacco smoke exposure: No Alcohol intake: current Drinks per week: 1 Alcohol use details: He drinks 2-3 glasses a wine a week. Substance use: never Substance use type: does not use Additional living arrangements comments: He lives with his of 63 years. They have 3 sons. 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 Gender identity (if verbalized by the patient): Male Spiritual care concerns: No Comments I have reviewed and agree with the patient's past medical, surgical, social, and family hx as documented by the RN. There is no relevant family history pertinent to the presenting complaint. Exam Narrative: GENERAL: Well-appearing, well-nourished, and in no acute distress. HEAD: Normocephalic, atraumatic. No sinus tenderness or facial swelling appreciated. EYES: PERRLA and EOMI. No evidence of erythema, swelling, or drainage. ENT: Bilateral external ears and ear canals normal. Bilateral TMs are normal.No TM perforation. Nares clear, no rhinorrhea or epistaxis. Bilateral turbinates without erythema/ swelling. Mucous membranes moist and pink. Uvula is midline without erythema and swelling. Posterior pharynx is normal.. Breath odor and voice normal. NECK: Supple. No Lymphadenopathy or nuchal rigidity appreciated. CHEST: Bilateral lung schmidt are clear to auscultation. No respiratory distress. No evidence pleuritic cp upon examination. Subtle dry cough appreciated on examination HEART: Regular rate and rhythm. No murmur, gallop, or rub heard. EXTREMITIES: Normal range of motion. No edema. SKIN: Warm, dry, no rash. NEURO: No focal def
== END 2022-02-07 11:13 | disposition home or self-care (01) ==
PROVIDERS: Emergency Provider Nurse Practitioner Family; PCP Emergency Medicine
DX: J06.9 Acute upper respiratory infection, unspecified (principal); N40.0 Benign prostatic hyperplasia without lower urinary tract symptoms; I12.9 Hypertensive chronic kidney disease with stage 1 through stage 4 chronic kidney disease, or unspecified chronic kidney disease; N18.30 Chronic kidney disease, stage 3 unspecified; K21.9 Gastro-esophageal reflux disease without esophagitis; Z98.42 Cataract extraction status, left eye; Z98.41 Cataract extraction status, right eye; Z85.828 Personal history of other malignant neoplasm of skin; Z79.82 Long term (current) use of aspirin
CPT/HCPCS: 99213; G0463

== ENCOUNTER 2022-03-30 10:58 | Observation (INO) | payer MEDICARE, SELFPAY ==
[2022-03-30] VITALS (13 sets, daily range): BP systolic 132–167; BP diastolic 44–98; PULSE 59–88; RESP 14–20; TEMP 36.3–36.6; O2SAT 98–100; BMI 24.0
--- NOTE | ~2022-03-30 | XR_ITS ---
EXAMINATION: XR chest 2V 03/30/2022 12:13 INDICATION: Syncope PROCEDURE: 2 view chest COMPARISON: No prior studies for comparison. FINDINGS: The lungs are clear. The cardiomediastinal silhouette is within normal limits. There are no pleural effusions. There is no pneumothorax suspected. IMPRESSION: 1: NO ACUTE CARDIOPULMONARY DISEASE. Reviewed, dictated and finalized at location B.
--- NOTE | ~2022-03-30 | US_ITS ---
EXAMINATION: US carotid duplex BI DATE: 03/31/2022 11:15 INDICATION: Right upper extremity weakness TECHNIQUE: Grayscale, color Doppler, and pulsed Doppler images of the cervical carotid arteries were obtained. The degree of vessel stenosis is placed in one of the following categories: normal, <50%, 5 0-69%, >=70% but less than near-occlusion, near-occlusion, or total occlusion. Note that percent sten osis relative to normal distal artery lumen diameter is indirectly measured from velocity measurement s as described by Francisco J, et al. Radiology 2003; 229:340-346. Notes: Normal: Peak systolic velocity <125 centimeters/sec and no plaque <50%. Peak systolic velocity <125 ( EDV <40; ICA/CCA PSV ratio <2.0; used these factors only a tandem lesions or low cardiac output or co ntralateral disease) 50-69 %: PSV 125-230 (EDV 40-100; ratio 2-4) >= 70% but less than near occlusion: PSV greater than 230 (EDV > 100; ratio> 4.0) Near Occlusion: PSV that is variable; markedly narrowed lumen Occlusion: Absent flow on color/spectral Doppler and no lumen on avila scale. COMPARISON: None. FINDINGS: RIGHT: The right common carotid artery (CCA) peak systolic velocity (PSV) is 106 cm/s. The right internal ca rotid artery (ICA) PSV is 170 cm/s. The right ICA end-diastolic velocity (EDV) is 42 cm/s. The right ICA/CCA PSV ratio is 1.6. The external carotid artery (ECA) PSV is 172 cm/s. There is antegrade flow in the right vertebral artery. LEFT: The left CCA PSV is 113 cm/s. The left ICA PSV is 130 cm/s. The left ICA EDV is 20 cm/s. The left ICA /CCA PSV ratio is 1.2. The ECA PSV is 119 cm/s. There is antegrade flow in the left vertebral artery . IMPRESSION: 1. 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 2. 50-69% stenosis in the left internal carotid artery by sonographic criteria. Reviewed, dictated and finalized at location B. IMPRESSION: 1. 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 2. 50-69% stenosis in the left internal carotid artery by sonographic criteria.
--- NOTE | ~2022-03-30 | CT_ITS ---
EXAMINATION: CT brain wo con DATE: 03/30/2022 12:09 INDICATION: Syncope TECHNIQUE: Computed tomography (CT) of the head was performed without intravenous contrast. The dose- length product was 529.67 mGy-cm. Automated exposure control and iterative reconstruction technique w ere employed. COMPARISON: CT dated 08/06/2016 FINDINGS: Mild atrophy. There are scattered moderate-severe periventricular and subcortical white mat ter changes, most likely related to small vessel ischemic disease (microangiopathy). No ventriculomeg venkat or midline shift. Basilar cisterns are patent. Paranasal sinuses and mastoids are pneumatized. Th ere is intracranial atherosclerosis. IMPRESSION: 1. No acute intracranial abnormality. 2: Chronic age-related findings. Reviewed, dictated and finalized at location B.
--- NOTE | ~2022-03-30 | MR_ITS ---
EXAMINATION: MR brain/brain stem wo/w con DATE: 03/31/2022 10:40 INDICATION: Strokelike symptoms with right upper extremity weakness and numbness. Lightheadedness wit h loss of consciousness. TECHNIQUE: Magnetic resonance imaging (MRI) of the brain and brainstem was performed without and with 15 mL Multihance intravenous contrast. Sequences included sagittal and axial T1-weighted SE, axial d iffusion-weighted FS SE, axial 3D SWAN, axial T2-weighted FLAIR, and axial T2-weighted FSE. Postcontr ast axial and coronal T1-weighted SE was obtained. Apparent diffusion coefficient (ADC) maps were cre ated. COMPARISON: Head CT dated 03/30/2022 and brain MR dated 08/07/2016 FINDINGS: There are no areas of restricted diffusion to suggest acute infarction. No intracranial hemorrhage or abnormal intracranial mass lesion. There are scattered areas of nonspecific increased T2-weighted si gnal intensity in the cerebral white matter, predominantly involving the deep and periventricular whi te matter. There are no intraparenchymal signal abnormalities seen on the other pulse sequences. The ventricles are symmetric and normal in size. There are no abnormal extra-axial fluid collections. Lj w voids are seen in the cerebral arteries on the T2-weighted sequences consistent with their expected patency. Changes of bilateral intraocular lens replacement. Mild mucosal thickening the bilateral et hmoid sinuses. Visualized orbits and soft tissues are unremarkable. There are no areas of abnormal en hancement on the post contrast images. IMPRESSION: 1. Interval progression of scattered nonspecific periventricular predominant white matter T2 hyperint ensity consistent with chronic small vessel ischemic disease. 2. No acute intracranial process or abnormally enhancing brain lesions. Reviewed, dictated and finalized at location A. IMPRESSION: 1. Interval progression of scattered nonspecific periventricular predominant wh ite matter T2 hyperintensity consistent with chronic small vessel ischemic dise ase. 2. No acute intracranial process or abnormally enhancing brain lesions.
--- NOTE | 2022-03-30 11:01 | ECG_ITS ---
Measurements Intervals [place] Rate: 91 P: 85 [place]: 142 QRS: 51 QRSD: 104 T: 51 QT: 317 QTc: 391 Interpretive Statements SINUS RHYTHM WITH FREQUENT VENTRICULAR PREMATURE COMPLEXES NONSPECIFIC T-WAVE ABNORMALITY ABNORMAL ECG NO PREVIOUS ECG AVAILABLE FOR COMPARISON Electronically Signed On 03-30-2022 12:10:58 CDT by Carlton Whitten M.D.
--- NOTE | 2022-03-30 11:17 | ED.DIZZY ---
HPI - Dizziness General Chief Complaint: Syncope Stated Complaint: syncope Time Seen by Provider: 03/30/22 11:17 History of Present Illness HPI Narrative: The patient is an 82-year-old male with a history of hypertension, stage III chronic kidney disease presenting to the emergency department for evaluation following a syncopal event. Patient states that he had a syncopal event this morning while he was walking to the bathroom. Patient states that he lost consciousness and is unsure how long he was unconscious for. Patient states he awakened on the floor and had urinated on himself. Patient denies any tongue laceration. This was not witnessed. His was still sleeping when this occurred. Patient states that he had awakened to use the restroom, stood up and while ambulating felt lightheaded and then passed out. Patient denies history of syncope in the past. When patient awakened, he was able to stand and ambulate to the restroom where he then changed his close, and ambulated back to bed. Patient then awakened this morning and felt like his right upper extremity was numb, states that this lasted for approximately 20 to 30 minutes before resolving. He denied any associated vision changes, headache, neck pain, extremity pain or injury. He denies current upper extremity weakness or numbness. No difficulty with speech, facial droop. Patient denies history of CVA in the past. He is not on any anticoagulation. Related Data Home Medications Medication Instructions Recorded Confirmed vit C 250 mg-vit E 90 mg-zinc 40 1 tablet PO BID 10/09/19 02/07/22 mg-copper 1 [id number] capsule (PreserVision AREDS-2) multivitamin 1 tablet PO DAILY 09/17/20 02/07/22 omeprazole 20 mg tablet,delayed 20 mg PO BID 09/17/20 02/07/22 release aspirin 81 mg tablet,delayed 1 mg PO DAILY 02/23/21 02/07/22 release Allergies Allergy/AdvReac Type Severity Reaction Status Date / Time guaifenesin Allergy Severe THROAT Verified 03/30/22 11:21 SWELLING pseudoephedrine Allergy Severe THROAT Verified 03/30/22 11:21 SWELLING Review of Systems Review of Systems: CONSTITUTIONAL: Denies fever, chills, or sweats. EYES: Denies visual changes, redness, or discharge. ENT: Denies rhinorrhea, congestion, sore throat, or otalgia. CARDIOVASCULAR: Denies chest pain, palpitations, or edema. RESPIRATORY: Denies cough or dyspnea. GASTROINTESTINAL: Denies abdominal pain, nausea, vomiting, or diarrhea. GENITOURINARY: Denies dysuria or hematuria. SKIN: Denies rash or itching. MUSCULOSKELETAL: Denies back pain, joint pain, or myalgia. NEUROLOGIC: Denies headache, numbness, or weakness. 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 Brando Ramos Code status: Full code Healthcare power of editor house organ: Split between the patient's 3 sons. Smoking status: Never smoker Second hand tobacco smoke exposure: No Alcohol intake: current Drinks per week: 1 Alcohol use details: He drinks 2-3 glasses a wine a week. Substance use: never Substance use type: does not use Additional living arrangements comments: He
[2022-03-30 11:24] LABS: Basophils Percent Auto 0.3 % (0.2-1.2); Eosinophils Percent Auto 0.4 % (0-4.4); Hematocrit 36.1 % (42.0-52.0); Hemoglobin 11.7 g/dL (14.0-18.0); Immature Granulocyte Absolute 0.07 K/mm3 (0.00-0.031); Lymphocytes Absolute Auto 2.74 K/mm3 (0.9-3.2); Lymphocytes Percent Auto 37.5 % (18.3-44.2); Mean Corpuscular HGB Conc 32.4 g/dl (32-36); Mean Corpuscular Hemoglobin 27.9 pg (26-34); Mean Platelet Volume 11.4 fl (7.4-10.4); Monocytes Absolute Auto 1.3 K/mm3 (0.1-0.6); Monocytes Percent Auto 17.2 % (2.6-8.5); Neutrophils Absolute Auto 3.2 K/mm3 (1.3-6.7); Neutrophils Percent Auto 43.6 % (45.5-73.1); Platelet Count Result 172 k/mm3 (150-375); Red Cell Distribution Width 12.6 % (11.5-14.5); White Blood Count 7.3 K/mm3 (4.5-10.0)
[2022-03-30 11:34] LABS: Alanine Aminotransferase 18 U/L (6-50); Albumin Level 4.6 g/dL (3.5-5.1); Alkaline Phosphatase 59 U/L (38-126); Anion Gap 12 mmol/L (8-16); Aspartate Amino Transferase 22 U/L (17-59); Bilirubin,Total 0.4 mg/dL (0.2-1.3); Blood Urea Nitrogen 23 mg/dL (9-20); Calcium 9.3 mg/dL (8.4-10.2); Carbon Dioxide 26 mmol/L (22-30); Chloride 100 mmol/L (98-107); Estimated CRCL calculation 36 ml/min; Estimated Glomerular Filt Rate 45; Glucose 145 mg/dL (65-110); Potassium 3.7 mmol/L (3.4-5.0); Sodium 138 mmol/L (137-145)
[2022-03-30] MEDS: SODIUM CHLORIDE 0.9% IV 1,000 ML 999 ML IV CONT (12:23)
[2022-03-30 12:31] LABS: Troponin I 0.019 ng/mL (0.000-0.034)
[2022-03-30 12:39] LABS: D Dimer 0.37 ug/mL (<0.48)
--- NOTE | 2022-03-30 12:41 | PC.NURSE ---
Patient states he is unable to urinate at this time, given urinal at bedside.
[2022-03-30 13:33] LABS: Appearance Urine Clear (Clear); Bilirubin Urine Negative (Negative); Blood Urine Negative (Negative); Color Urine Yellow (Yellow); Glucose Urine UA Negative (Negative); Ketones Urine Negative (Negative); Leukocyte Esterase Ur Negative LEU/UL (Negative); Nitrate Urine Negative (Negative); Protein Urine Negative (Negative); Specific Grav Ur 1.015 (1.001-1.035); Urobilinogen Urine 0.2 mg/dL (<2.0); pH Urine 7.5 (5.0-9.0)
[2022-03-30 13:42] LABS: Add Urine Microscopic? NO
--- NOTE | 2022-03-30 14:55 | WPDNEURCNPN ---
Assessment and Plan Assessment and plan (1) Syncope and collapse: Code(s): R55 - Syncope and collapse Status: Acute Assessment and Plan: Mr. Casillas is an 82 year old male with a history of CKD and HTN who presented after an episode of unwitnessed LOC. Based on description of event -- lightheadedness with positional change, most likely orthostatic intolerance. However, given that the event was unwitnessed and it is unclear how long the LOC lasted, will need to exclude other causes. - Recommend routine EEG - MRI brain w/o contrast given RUE numbness (possible TIA?) - Bilateral carotid duplex - Please check orthostatics - Consider cardiac etiology Consult date: 03/30/22 Time Seen: 14:55 Reason for consult: Syncope vs seizure-like activity HPI: Jaylan Casillas Jr. is a 82 year old male with a history of hypertension and stage III CKD presenting after an episode of loss of consciousness. Last night he woke up to go to the bathroom, he stood up and felt lightheaded, and thenn passed out. Unclear how long LOC was as was asleep in the bedroom. Patient eventually work-up on the floor and noted that he had urinated on himself. Once he regained consciousness he was able to walk and get back to bedroom. Earlier today he had a 30 min episode of RUE numbness that self-resolved. He has never had any previous episodes similar to this. No prior history of seizures. In the ED he had an EKG which showed sinus rhythm with frequent PVCs. BP was in 140s/90s, HR in 60-80s. CT head was done which was negative. Review of Systems Constitutional: Constitutional: Denies chills, Denies lethargy and Denies weakness Eyes: Eyes: Reports no additional eye complaints and Denies blurry vision ENT: Reports Normal hearing present and Denies dysphagia Cardiovascular: Cardiovascular: Denies chest pain, Reports diaphoresis and Reports lightheadedness Respiratory: Respiratory: Reports no additional respiratory complaints Gastrointestinal: Gastrointestinal: Reports no additional gastrointestinal complaints Genitourinary: Genitourinary: Reports urinary incontinence Musculoskeletal: Musculoskeletal: Reports no additional musculoskeletal complaints Integumentary/Breasts: Skin/Breast: Reports system reviewed and no additional complaints, except as docu Neurologic: Reports as per HPI Psychiatric: Psychiatric: Reports no additional psychiatric complaints [facility] Past Medical History Medical History Anemia BPH (benign prostatic hyperplasia) CKD (chronic kidney disease), stage III Esophageal stricture Essential hypertension Essential hypertension Gastric ulcer GERD (gastroesophageal reflux disease) Knee sprain Neck pain Prostate cancer Shoulder pain Surgical History Surgical History History of bilateral cataract extraction History of colonoscopy with polypectomy (01/2021) 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 Brando Ramos Code status: Full code Healthcare power of trial attorney: Split between the patient's 3 sons. Smoking status: Never smoker Second hand tobacco smoke exposure: No Alcohol intake: current Drinks per week: 1 Alcohol use details: He drinks 2-3 glasses a wine a week. Substance use: never Substance use type: does not use Additional living arrangements comments: He lives with his of 63 years. They have 3 sons. 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 Gender identity (if verbalized by the patient): Male
[2022-03-30 14:59] LABS: SARS-CoV-2 RNA PCR Negative
--- NOTE | 2022-03-30 15:07 | PM.IMHP ---
H&P: HPI History of Present Illness Date/Time: 03/30/22 15:07 Chief Complaint: syncope and collapse Narrative: This is a 82-year-old male patient who has a history of chronic kidney disease and hypertension. The patient stated that he felt lightheaded the patient stated that he passed out lost consciousness and did not know how long he lost consciousness. He was also complaining of right upper numbness to his arm. He does have a history of hypertension. He has had no previous history of syncopal events. He had no chest pain or palpitations no nausea vomiting or diarrhea. The patient stated he urinated on himself. The patient had been resting at home when this occurred. The patient had to urinate knee stood up and felt lightheaded and passed out. When the patient woke up he was able to ambulate to the bathroom to changes clothes. No facial droop are difficulty speaking. He denies any previous history of having a CVA or being on any anticoagulants. Head CT was read as no acute intracranial abnormality. Chronic age-related findings. Chest x-ray no acute cardiopulmonary disease. Patient was given IV fluids. He was seen by Neurology. The patient is being admitted to observation status on 03/30/2022. Review of Systems Review of Systems: See HPI All systems reviewed & are unremarkable except as noted in HPI and below Constitutional: Constitutional: Reports as per HPI and Reports no additional constitutional complaints Eyes: Eyes: Reports as per HPI and Reports no additional eye complaints ENT: Reports system reviewed and no additional complaints, except as documented and Reports Normal hearing present Cardiovascular: Cardiovascular: Reports no additional cardiovascular complaints Respiratory: Respiratory: Reports no additional respiratory complaints and Reports no additional respiratory complaints Gastrointestinal: Gastrointestinal: Reports as per HPI and Reports no additional gastrointestinal complaints Musculoskeletal: Musculoskeletal: Reports no additional musculoskeletal complaints Integumentary/Breasts: Skin/Breast: Reports system reviewed and no additional complaints, except as docu and Reports as per HPI Neurologic: Reports system reviewed and no additional complaints, except as documented, Reports as per HPI and Reports Normal hearing present Psychiatric: Psychiatric: Reports no additional psychiatric complaints and Reports as per HPI Endocrine: Endocrine: Reports no additional endocrine complaints Hematologic/Lymphatic: Hematologic/Lymphatic: Reports no additional hematologic/lymphatic complaints Allergic/Immunologic: Allergic/Immunologic: Reports no additional allergic/immunologic complaints [facility] Past Medical History Medical History Anemia BPH (benign prostatic hyperplasia) CKD (chronic kidney disease), stage III Esophageal stricture Essential hypertension Essential hypertension Gastric ulcer GERD (gastroesophageal reflux disease) Knee sprain Neck pain Prostate cancer Shoulder pain Surgical History Surgical History History of bilateral cataract extraction History of colonoscopy with polypectomy (01/2021) 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 Brando Ramos Code status: Full code Healthcare power of associate attorney: Split between the patient's 3 sons. Smoking status: Never smoker Second hand tobacco smoke exposure: No Alcohol intake: current Drinks per week: 1 Alcohol use details: He drinks 2-3 glasses a wine a week. Subs
[2022-03-30 18:05] LABS: Troponin I 0.018 ng/mL (0.000-0.034)
[2022-03-30 19:58] LABS: Troponin I 0.024 ng/mL (0.000-0.034)
[2022-03-31] VITALS (11 sets, daily range): BP systolic 137–156; BP diastolic 51–88; PULSE 54–74; RESP 18–19; TEMP 36–36.6; O2SAT 98–100
--- NOTE | 2022-03-31 | ECHO_ITS ---
Patient Info Name: Jaylan Casillas Age: 82 years : 1940 Gender: Male Ht: 71 in Wt: 172 lbs BSA: 1.98 m2 HR: 62 bpm BP: 163 / 62 mmHg Technical Quality: Good Exam Date: 03/31/2022 9:31 AM Exam Location: [facility] Patient Status: Outpatient Admit Date: 03/30/2022 Staff Ordering Physician: Isis Montanez NP Felt Tipping Machine Tender: Jesus Inman RDCS, RT Attending Provider: Maria A Alanis MD Referring Physician: Tarik ARELLANO; Exam Type: CA echo doppler w bubble study Study Info Indications R53.1 - Weakness Complete two-dimensional, color flow and Doppler transthoracic echocardiogram is performed with agitated saline. Strain analysis performed. Summary 1. Left ventricular chamber dimension is normal. 2. Left ventricular systolic function is normal, estimated at 60-65%. 3. There is mildly increased left ventricular wall thickness. 4. The left ventricular diastolic function is grade I diastolic dysfunction. 5. E/e' 7 is not elevated. 6. Global longitudinal strain is midly abnormal at -16.8%. 7. Left atrial chamber dimension is mildly enlarged. 8. There is trace mitral valve regurgitation. 9. There is trace tricuspid valve regurgitation. Left Ventricle E/e' 7 is not elevated. Global longitudinal strain is midly abnormal at -16.8%. Left ventricular chamber dimension is normal. Left ventricular systolic function is normal, estimated at 60-65%. There is mildly increased left ventricular wall thickness. The left ventricular diastolic function is grade I diastolic dysfunction. Right Ventricle Right ventricular systolic function is normal and with normal TAPSE 2.8 cm. Right ventricular chamber dimension is normal. Left Atria Left atrial chamber dimension is mildly enlarged. Right Atria Right atrial chamber dimension is normal. Atrial Septum Agitated saline injection with and without valsalva maneuver opacified right side cardiac chambers without shunt to left side cardiac chambers. Intact interatrial septum visualized by 2D and agitated saline imaging. Aortic Valve The aortic valve is trileaflet. There is no aortic valve stenosis. There is no aortic valve regurgitation. Pulmonic Valve There is no pulmonic regurgitation. Mitral Valve There is no mitral valve stenosis. There is trace mitral valve regurgitation. Tricuspid Valve RVSP is not calculated due to an inadequate TR jet. There is trace tricuspid valve regurgitation. Pericardium/Pleural There is no pericardial effusion. Inferior Vena Cava Normal inferior vena cava with >50% collapse upon inspiration consistent with normal right atrial pressure, 5 mmHg. Aorta The aortic root size at the sinus of Valsalva is normal. Left Ventricular Outflow Tract Name Value Normal LVOT 2D LVOT Diameter 2.2 cm LVOT Doppler LVOT Peak Gradient 4 mmHg LVOT Mean Gradient 2 mmHg LVOT VTI 23 cm LVOT VTI/AV VTI Ratio 0.9 LVOT Stroke Volume 84 ml LVOT CO
[2022-03-31] MEDS: SUCRALFATE 1 GM TABLET BY MOUTH ×4 (05:56→20:55)
[2022-03-31] MEDS: FLUTICASONE PROPIONATE 0.05% NA SPR 16 GM BTL (*BKC) 1 SPRAY NASAL ×3 (05:56→20:57)
[2022-03-31 07:58] LABS: Basophils Percent Auto 0.2 % (0.2-1.2); Eosinophils Percent Auto 0.6 % (0-4.4); Hematocrit 35.3 % (42.0-52.0); Hemoglobin 11.4 g/dL (14.0-18.0); Immature Granulocyte Absolute 0.03 K/mm3 (0.00-0.031); Immature Granulocyte Percent A 0.6 % (0-0.5); Lymphocytes Percent Auto 32.3 % (18.3-44.2); Mean Corpuscular HGB Conc 32.3 g/dl (32-36); Mean Corpuscular Hemoglobin 28.1 pg (26-34); Mean Corpuscular Volume 86.9 fl (80-100); Mean Platelet Volume 11.1 fl (7.4-10.4); Monocytes Percent Auto 19.4 % (2.6-8.5); Neutrophils Absolute Auto 2.3 K/mm3 (1.3-6.7); Neutrophils Percent Auto 46.9 % (45.5-73.1); Platelet Count Result 157 k/mm3 (150-375); Red Blood Count 4.06 M/mm3 (4.6-6.20); Red Cell Distribution Width 12.5 % (11.5-14.5)
[2022-03-31 08:22] LABS: Alanine Aminotransferase 16 U/L (6-50); Albumin Level 4.2 g/dL (3.5-5.1); Alkaline Phosphatase 56 U/L (38-126); Anion Gap 7 mmol/L (8-16); Aspartate Amino Transferase 25 U/L (17-59); Bilirubin,Total 0.4 mg/dL (0.2-1.3); Blood Urea Nitrogen 18 mg/dL (9-20); Calcium 9.9 mg/dL (8.4-10.2); Carbon Dioxide 29 mmol/L (22-30); Chloride 102 mmol/L (98-107); Estimated CRCL calculation 41 ml/min; Estimated Glomerular Filt Rate 53; Glucose 99 mg/dL (65-110); Lactate Dehydrogenase 131 U/L (120-246); Phosphorus 3.1 mg/dL (2.5-4.5); Potassium 4.1 mmol/L (3.4-5.0); Sodium 138 mmol/L (137-145)
[2022-03-31] MEDS: PANTOPRAZOLE 40 MG TABLET PO (08:34)
[2022-03-31] MEDS: FINASTERIDE 5 MG TABLET PO (08:34)
[2022-03-31] MEDS: MULTIVITAMINS THERAPEUTIC TAB (*BKC) 1 TABLET PO (08:34)
[2022-03-31] MEDS: OPTI-GEN TAB 1 TABLET PO ×2 (08:34→17:38)
[2022-03-31] MEDS: ASPIRIN 81 MG ENTERIC TABLET PO (08:37)
--- NOTE | 2022-03-31 08:51 | WPDNEUROLOGY ---
Neurology EEG Report General Information Date of Study: 03/31/22 TEST Routine EEG DIAGNOSIS Syncopal episode; possible seizure CONDITION OF RECORDING awake and drowsy EEG NUMBER [id number] CLINICAL HISTORY Patient reports he became dizzy and lost consciousness yesterday morning. Does not know how long he was out. Feels fine now. EEG DESCRIPTION During the awake state with eyes closed the background consists of 9 Hz posterior dominant rhythm which attenuates appropriately with eye opening. The recording is continuous. There is a well developed anterior-posterior gradient. No significant asymmetries of background activities are noted. With drowsiness there is was waxing and waning of the dominant rhythm with eventual replacement by a mixture of beta, alpha, and theta activity. Patient did not enter stage II sleep. There are no epileptiform discharges or seizures during this recording. Hyperventilation and photic stimulation were not performed. IMPRESSION This is a normal routine EEG recorded in awake and drowsy states. There are no electrographic seizures identified, nor are there any epileptiform discharges. Please note that a normal EEG cannot exclude a seizure disorder. Clinical correlation is recommended.
--- NOTE | 2022-03-31 09:20 | PCOTNOTE ---
Attempted to see pt. for occupational therapy evaluation. Pt. receiving ultrasound in room at this time. Will follow.
[2022-03-31 14:21] LABS: Total Triiodothyronine (T3) 1.28 NG/ML (0.97-1.69)
--- NOTE | 2022-03-31 16:21 | PM.IMPN ---
Progress Note: A&P Assessment and Plan (1) Loss of consciousness: Code(s): R40.20 - Unspecified coma Status: Acute Assessment and Plan: Patient presented following syncopal episode at home. Unknown LOC. CT head negative for acute finding. Neuro consulted and appreciate recommendations. Echocardiogram with normal LV systolic function and grade 1 diastolic dysfunction, trace mitral and tricuspid regurgitation. Telemetry with NSR/SB and PVCs. If work up is unremarkable will discharge on event monitor./ orthostatic vitals negative. BP meds held on admission. Will resume and repeat Orthostatics tomorrow. MRI brain normal. Lipid panel unremarkable and random glucose <200 mg/dL. EEG normal. (2) Essential hypertension: Code(s): I10 - Essential (primary) hypertension Status: Chronic Assessment and Plan: BP 151/56 today. Permissive hypertension overnight d/t concerns for possible stroke. Resume amlodipine at home dose. Start HCTZ and losartan at lower dose. (3) CKD (chronic kidney disease), stage III: Qualifiers: Chronic kidney disease stage 3 subtype: unspecified whether 3a or 3b Qualified Code(s): N18.30 - Chronic kidney disease, stage 3 unspecified Code(s): N18.3 - Chronic kidney disease, stage 3 (moderate) Status: Chronic Assessment and Plan: patient's creatinine is 1.5. Typically ranging from 1.3 to 1.4. Patient was given IV fluids in the ER. the patient was not aware that he has chronic renal failure stage 3. We discussed causes of CKD. He was counseled on adequate BP control, staying hydrated and avoiding NSAIDs. (4) Anemia: Qualifiers: Anemia type: iron deficiency Iron deficiency anemia type: other iron deficiency Qualified Code(s): D50.8 - Other iron deficiency anemias Code(s): D64.9 - Anemia, unspecified Status: Chronic Assessment and Plan: H&H as baseline. most likely related to chronic disease. Stable. (5) BPH (benign prostatic hyperplasia): Qualifiers: Lower urinary tract symptom presence: symptoms absent Qualified Code(s): N40.0 - Benign prostatic hyperplasia without lower urinary tract symptoms Code(s): N40.0 - Benign prostatic hyperplasia without lower urinary tract symptoms Status: Acute Assessment and Plan: Continued on finasteride. No urinary complaints (6) Numbness and tingling of right arm: Code(s): R20.0 - Anesthesia of skin; R20.2 - Paresthesia of skin Status: Acute Assessment and Plan: No right hand numbness at this time. May be secondary to syncopal episode and trauma. neurology consulted and appreciate recommendations. Syncope work up as above. PT and OT evaluation. (7) Prostate cancer: Code(s): C61 - Malignant neoplasm of prostate Status: Acute Assessment and Plan: -monitoring outpatient. Plan CODE STATUS: FULL CODE Disposition: Home Additional Plan Discharge home tomorrow if patient continues to be asymptomatic. Time Spent With Patient Time with patient: 15 - 25 minutes Subjective Date/time seen: 03/31/22 16:21 Interval history: Patient is an 82 yo male with medical history of CKD stage 3, hypertension, GERD, and prostate cancer. He presented to the ED for evaluation of syncopal episode. Patient reports no overnight events or new complaints. He reports having a alma delia-horse yesterday and sprang up out of bed, became dizzy and then found himself on the ground later. He reports falling on his right shoulder and having right hand numbness for approximately 20 minutes prior to going to the ED. He reports later realizing he was incontinent of urine. He sees Dr. Logan for monitoring of carotid artery disease and has an appointment next week. He reports not drinking much water during the day and several cups of coffee typically. No chest pain, SOB, abd pain, N/V/D, constipatio
[2022-04-01] VITALS: PULSE 58
[2022-04-01 02:00] VITALS: BP 135/58; PULSE 62
[2022-04-01 04:00] VITALS: PULSE 55
[2022-04-01] MEDS: SUCRALFATE 1 GM TABLET BY MOUTH (05:43)
[2022-04-01 06:00] VITALS: BP 136/49; PULSE 54; RESP 18; TEMP 36.6; O2SAT 100
[2022-04-01 07:13] LABS: Anion Gap 8 mmol/L (8-16); Blood Urea Nitrogen 18 mg/dL (9-20); Calcium 9.1 mg/dL (8.4-10.2); Carbon Dioxide 29 mmol/L (22-30); Chloride 103 mmol/L (98-107); Estimated CRCL calculation 38 ml/min; Estimated Glomerular Filt Rate 48; Glucose 100 mg/dL (65-110); Potassium 3.9 mmol/L (3.4-5.0); Sodium 140 mmol/L (137-145)
[2022-04-01 08:00] VITALS: PULSE 47
[2022-04-01] MEDS: FINASTERIDE 5 MG TABLET PO (09:15)
[2022-04-01] MEDS: hydroCHLOROthiazide 12.5 MG CAPSULE PO (09:15)
[2022-04-01] MEDS: BENZONATATE 100 MG CAPSULE 200 MG PO (09:15)
[2022-04-01] MEDS: MULTIVITAMINS THERAPEUTIC TAB (*BKC) 1 TABLET PO (09:15)
[2022-04-01] MEDS: amLODIPine BESYLATE 5 MG TABLET 10 MG PO (09:15)
[2022-04-01] MEDS: LOSARTAN POTASSIUM 50 MG TABLET PO (09:15)
[2022-04-01] MEDS: OPTI-GEN TAB 1 TABLET PO (09:16)
[2022-04-01] MEDS: FLUTICASONE PROPIONATE 0.05% NA SPR 16 GM BTL (*BKC) 1 SPRAY NASAL (09:16)
[2022-04-01] MEDS: PANTOPRAZOLE 40 MG TABLET PO (09:16)
[2022-04-01] MEDS: ASPIRIN 81 MG ENTERIC TABLET PO (09:16)
--- NOTE | 2022-04-01 10:07 | PM.DS ---
DS: Admitting Diagnosis Discharge Date 04/01/2022 1117 Admitting Diagnosis Sycope Paresthesia right arm CKD, stage 3 DS: Discharge Diagnosis Discharge Diagnosis (1) Syncope and collapse: Code(s): R55 - Syncope and collapse Status: Acute (2) Numbness and tingling of right arm: Code(s): R20.0 - Anesthesia of skin; R20.2 - Paresthesia of skin Status: Acute (3) Bradycardia: Code(s): R00.1 - Bradycardia, unspecified Status: Acute (4) Premature ventricular contractions (PVCs) (VPCs): Code(s): I49.3 - Ventricular premature depolarization Status: Acute (5) Elevated TSH: Code(s): R79.89 - Other specified abnormal findings of blood chemistry Status: Acute (6) CKD (chronic kidney disease), stage III: Qualifiers: Chronic kidney disease stage 3 subtype: unspecified whether 3a or 3b Qualified Code(s): N18.30 - Chronic kidney disease, stage 3 unspecified Code(s): N18.3 - Chronic kidney disease, stage 3 (moderate) Status: Chronic Assessment and Plan: Acute on chronic kidney disease, stage 3 (7) Essential hypertension: Code(s): I10 - Essential (primary) hypertension Status: Chronic (8) Anemia: Qualifiers: Anemia type: iron deficiency Iron deficiency anemia type: other iron deficiency Qualified Code(s): D50.8 - Other iron deficiency anemias Code(s): D64.9 - Anemia, unspecified Status: Chronic DS: Summary Hospital Course Reason for hospitalization: Syncope Hospital Course: Jaylan Jr Vinny is an?82-year-old male patient with medical history of chronic kidney disease, hypertension, and prostate cancer.? He presented to the ED for evaluation of syncope and right arm numbness and tingling. He reported feeling lightheaded and he passing out at home. He had LOC of unknown duration. The patient reported having a alma delia horse in the morning and jumping out of bed. He felt dizzy, but ambulated to the laundry room. He reports he must have lost consciousness but did not know for how long.? He reported falling onto his right arm. Later that morning, he reports right upper numbness to his arm for approximately 20 minutes and that he was incontinent of urine following his syncopal episode. He has had no previous history of syncopal events.? He denied chest pain, SOB, palpitations, abd pain, nausea, vomiting, diarrhea, stool changes, tongue injury. dysuria, changes in speech, or facial droop.? When the patient woke up he was able to ambulate to the bathroom to changes clothes.? He denied previous history of having a CVA or being on anticoagulants.? Head CT showed no acute intracranial abnormality, but chronic age-related findings.? Chest x-ray no acute cardiopulmonary disease.?Lab work showed mildly elevated BUN 23, creatinine 1.5 (baseline 1.3 to 1.4), hemoglobin 11.7, troponin 0.019 and UA without s/s infection. He was given IV fluids in ED and referred for observation.? Neurology was consulted in ED.? The patient was referred for observation. Neurology was consulted. Brain MRI was negative for acute infarct or intracranial pathology. Carotid doppler US showed 50-69% right and left ICA disease; patient is followed by Dr. Logan, Vascular, for monitoring of carotid artery disease. Echocardiogram showed normal LV systolic function and EF 55-60%. Grade 1 diastolic dysfunction and trace tricuspid and mitral regurgitation. Orthostatics vitals were negative. EKG was sinus rhythm with frequent PVCs. On telemetry, the patient was noted to have sinus bradycardia 47 to 62 bpm with frequent PVCs, including 3 beat runs VT and couplets. He magnesium and potassium were within normal limits. Event monitor was ordered for 30-days at discharge. The patient will have follow up with PCP and referral to cardiology as warranted by results. TSH was elevated on admission 6.660, but free T4 and total T3 were normal. Repeat Thyroid panel in 4-6 weeks
[2022-04-01] MEDS: POTASSIUM CHLORIDE 20 MEQ TABLET 40 MEQ PO (11:38)
== END 2022-04-01 12:12 | disposition home or self-care (01) ==
LOC: ANHED 13:50 → ANH3MEDSUR 03-31 08:27
PROVIDERS: Nurse Practitioner; Admitting Provider Hospitalist; Emergency Provider Emergency Medicine; PCP Emergency Medicine; Visit Provider Nurse Practitioner Family
DX: R55 Syncope and collapse (principal); R20.0 Anesthesia of skin; I49.3 Ventricular premature depolarization; R79.89 Other specified abnormal findings of blood chemistry; I12.9 Hypertensive chronic kidney disease with stage 1 through stage 4 chronic kidney disease, or unspecified chronic kidney disease; N18.30 Chronic kidney disease, stage 3 unspecified; I65.23 Occlusion and stenosis of bilateral carotid arteries; D63.1 Anemia in chronic kidney disease; N40.0 Benign prostatic hyperplasia without lower urinary tract symptoms; D50.9 Iron deficiency anemia, unspecified; K21.9 Gastro-esophageal reflux disease without esophagitis; I51.89 Other ill-defined heart diseases; R29.700 NIHSS score 0; C61 Malignant neoplasm of prostate; Z20.822 Contact with and (suspected) exposure to COVID-19; Z79.82 Long term (current) use of aspirin; Z79.51 Long term (current) use of inhaled steroids; Z79.899 Other long term (current) drug therapy; Z80.1 Family history of malignant neoplasm of trachea, bronchus and lung
CPT/HCPCS: 36415; 70450; 70553; 71046; 80048; 80053; 81003; 83615; 83735; 84100; 84439; 84443; 84480; 84484; 85025; 85380; 93005; 93306; 93880; 95816; 96360; 96375; 97161; 97165; 99285; A9270; A9577; C9803; G0378; J7030; U0003; U0005

== ENCOUNTER 2022-05-18 08:42 | Outpatient (CLI) | payer MEDICARE, SELFPAY ==
--- NOTE | 2022-05-18 08:54 | EST_ITS ---
Patient Info Name: Jaylan Casillas Age: 82 years : 1940 Gender: Male Ht: 71 in Wt: 174 lbs BSA: 1.99 m2 HR: 63 bpm BP: 150 / 71 mmHg Heart Rhythm: Sinus Rhythm Technical Quality: Fair Exam Date: 05/18/2022 10:00 AM Exam Location: [facility] Patient Status: Outpatient Admit Date: 05/18/2022 Staff Ordering Physician: Georges Willingham DO Business Development Engineer: Leann Ashley RDCS Attending Provider: Georges Willingham DO Referring Physician: Maulik MOJICA; Exercise Technologist: Jesus Inman RDCS, RT Exercise Physician: Georges Willingham DO Exam Type: CA stress echo Study Info Indications R06.00 - Dyspnea, unspecified Treadmill exercise stress echocardiogram is performed. Summary 1. 1. Negative Simeon exercise stress test for ischemic ST changes by ECG criteria. 2. 2. Reduced functional capacity, achieving 5.6 METs of workload. 3. 3. Baseline hypertension. 4. 4. Appropriate HR response to exercise. 5. 5. Appropriate HR recovery at 1 minute post exercise. 6. 6. Negative stress echocardiogram for ischemia by wall motion analysis. 7. 7. Patient informed of the above results. Stress Echo Findings Left Ventricle Appropriate increase in LV endocardial thickening with systole. Appropriate augmentation of contractility with systole. No wall motion abnormality. Left Ventricle Normal LV systolic function, no wall motion abnormality. Protocol: Simeon Stress ECG Details Stage: REST Duration (min): 2 min : 4 sec Speed (mph): 0.0 Grade (%): 0 HR (bpm): 63 SBP (mmHg): 150 DBP (mmHg): 71 METS: --- Stage: REST Duration (min): 13 min : 28 sec Speed (mph): 0.0 Grade (%): 0 HR (bpm): --- SBP (mmHg): 150 DBP (mmHg): 71 METS: --- Stage: STAGE 1 Duration (min): 1 min : 0 sec Speed (mph): 1.7 Grade (%): 10 HR (bpm): 93 SBP (mmHg): 150 DBP (mmHg): 71 METS: --- Stage: STAGE 1 Duration (min): 2 min : 0 sec Speed (mph): 1.7 Grade (%): 10 HR (bpm): 109 SBP (mmHg): 150 DBP (mmHg): 71 METS: --- Stage: STAGE 1 Duration (min): 3 min : 0 sec Speed (mph): 1.7 Grade (%): 10 HR (bpm): 119 SBP (mmHg): 194 DBP (mmHg): 55 METS: --- Stage: STAGE 2 Duration (min): 0 min : 33 sec Speed (mph): 0.0 Grade (%): 0 HR (bpm): 121 SBP (mmHg): 194 DBP (mmHg): 55 METS: --- Stage: RECOVERY Duration (min): 0 min : 26 sec Speed (mph): 0.0 Grade (%): 0 HR (bpm): 117 SBP (mmHg): 194 DBP (mmHg): 55 METS: --- Stage: RECOVERY Duration (min): 1 min : 26 sec Speed (mph): 0.0 Grade (%): 0 HR (bpm): 102 SBP (mmHg): 194 DBP (mmHg): 55 METS: --- Stage: RECOVERY Duration (min): 2 min : 26 sec Speed (mph): 0.0 Grade (%): 0 HR (bpm): 91 SBP (mmHg): 194 DBP (mmHg): 55 METS: --- Stage: RECOVERY Duration (min): 3 min : 26 sec Speed (mph): 0.0 Grade (%): 0 HR (bpm): 80 SBP (mmHg): 194 DBP (mmHg): 55 METS:
== END 2022-05-18 08:43 | disposition home or self-care (01) ==
PROVIDERS: PCP Emergency Medicine; Visit Provider Internal Medicine Cardiovascular Disease
DX: R06.09 Other forms of dyspnea (principal)
CPT/HCPCS: 93351

== ENCOUNTER 2022-09-14 09:18 | Outpatient (CLI) | payer MEDICARE, SELFPAY ==
--- NOTE | 2022-09-17 18:45 | WPDSLEEPSTUD ---
Sleep Study Date of Study: 09/14/22 Ordering Provider: Georges Willingham DO Interpreting Physician: Lala Driver MD Sleep Study Type: Polysomnogram Height: 1.8 m Weight: 78.925 kg Body Mass Index: 24.3 Neck Circumference (inches): 15.5 [place]: 5 Reason for Sleep Study Non-refreshing sleep Sleep History Jaylan Casillas . is an 82-year-old man Who has difficulty getting to sleep and staying asleep. He starts the night on his left side, switches to his right side and then back to the left side until he is able to fall asleep. Left shoulder pain is present throughout the night and disrupts his sleep. Sometimes he wakes himself snoring. He has 2 sons that use CPAP. He rarely awakens from sleep feeling short of breath. He occasionally awakens at night with heartburn, belching or coughing. He occasionally snores rarely loud enough that others complain. He occasionally has trouble sleeping with a cold. He rarely wakes up gasping for breath at night. He rarely has breathing problems at night observed by others. He rarely sweats excessively at night. Does not notice his heart pounding or beating irregularly at night. He does not fall asleep during the day or fall asleep involuntarily. He does not fall asleep while driving. He does not have loss of muscle tone with strong emotion. He rarely has daytime difficulties due to excessive sleepiness. He does not feel paralyzed on waking or falling asleep. He occasionally has vivid dreamlike scenes on waking or falling asleep. He does not feel afraid to go to sleep. He occasionally has nightmares. He occasionally remembers his dreams. He occasionally has racing thoughts. He rarely feels sad or depressed. He occasionally has anxiety. He rarely has muscular tension. He occasionally notices parts of his body jerking. He occasionally kicks at night. He rarely has crawling and aching feelings in his legs. He rarely has any kind of leg pain at night. He does not have morning jaw pain. He occasionally grinds his teeth during sleep. He occasionally has a bothered by pain during the day and awake occasionally awakened by pain at night. He rarely wakes up feeling stiff in the morning. He never wakes up with sore achy muscles. He rarely wakes up with pain in the neck and spine. He has nightmares, fatigue, stomach problems and he takes antacids regularly. Normal bedtime is 10:30 p.m. falling asleep within 15 minutes, typically waking at least twice at night for 5 minutes to go to the bathroom. He wakes in the morning at 6:30 a.m.. He keeps the same schedule on weekends. He estimates getting 8 hours of sleep at night. He takes naps in the afternoon or evening. A nap may last an hour and a half. A long nap may be refreshing but a short nap lasting 10 or 15 minutes is not refreshing. Most of the time he feels adequate in the morning. He feels better in the morning compared to other times of day. Habits: Never smoked tobacco. Caffeine 2 cups per day. Alcohol 1 glass per day. No recreational substance. Additional past medical history: He reports a left lower lobe resection for bronchiectasis in 1962. Basal cell carcinoma removed from the left upper lip. Other skin cancers removed inside the right elbow, right ear, left cheek and top of the hand. Removal of mandibular ileana both sides of the bottom jaw. Epidural in his neck for left shoulder pain, 2010 and 2011. [facility] Past Medical History Medical History Anemia BPH (benign prostatic hyperplasia) CKD (chronic kidney disease), stage III Esophageal stricture Essential hypertension Essential hypertension Gastric ulcer GERD (gastroesophageal reflux disease) Knee sprain Neck pain Prostate cancer Shoulder pain Surgical History Surgical History History of bilateral cataract extraction History of colonoscopy with polypecto
[2022-09-24 18:34] VITALS: BMI 24.3
== END 2022-09-15 07:06 | disposition home or self-care (01) ==
LOC: ANHCSM 09:19
PROVIDERS: PCP Emergency Medicine; Visit Provider Internal Medicine Cardiovascular Disease
DX: G47.10 Hypersomnia, unspecified (principal)
CPT/HCPCS: 95810

== ENCOUNTER 2022-11-03 16:42 | Emergency (ER) | payer MEDICARE, SELFPAY ==
--- NOTE | ~2022-11-03 | CT_ITS ---
EXAMINATION: CT brain wo con DATE: 11/03/2022 17:07 INDICATION: right hand numbness . TECHNIQUE: Computed tomography (CT) of the head was performed without intravenous contrast. The mA wa s adjusted according to patient size. Iterative reconstruction technique was employed. The dose-lengt h product was 605.33 mGy-cm. COMPARISON: 03/30/2022. FINDINGS: No acute intracranial hemorrhage or extra-axial fluid collection. No hydrocephalus, mass, or herniation. No acute ischemic infarct. Unremarkable dural venous sinus attenuation. No acute osseous abnormality. The aerated spaces are clear. Moderate atrophy and chronic white matter change. Atherosclerotic intracranial calcification. Bilater al lens replacements. IMPRESSION: No acute intracranial process. Reviewed, dictated and finalized at location K.
[2022-11-03 16:47] VITALS: BP 200/96; PULSE 67; RESP 18; TEMP 36.4; O2SAT 99
[2022-11-03 17:57] LABS: Basophils Percent Auto 0.3 % (0.2-1.2); Eosinophils Percent Auto 0.6 % (0-4.4); Hematocrit 36.2 % (42.0-52.0); Hemoglobin 11.9 g/dL (14.0-18.0); Immature Granulocyte Absolute 0.06 K/mm3 (0.00-0.031); Immature Granulocyte Percent A 0.8 % (0-0.5); Lymphocytes Absolute Auto 1.86 K/mm3 (0.9-3.2); Lymphocytes Percent Auto 25.6 % (18.3-44.2); Mean Corpuscular HGB Conc 32.9 g/dl (32-36); Mean Corpuscular Hemoglobin 27.7 pg (26-34); Mean Corpuscular Volume 84.2 fl (80-100); Mean Platelet Volume 11.7 fl (7.4-10.4); Monocytes Absolute Auto 1.6 K/mm3 (0.1-0.6); Monocytes Percent Auto 21.9 % (2.6-8.5); Neutrophils Absolute Auto 3.7 K/mm3 (1.3-6.7); Neutrophils Percent Auto 50.8 % (45.5-73.1); Platelet Count Result 150 k/mm3 (150-375); Red Cell Distribution Width 12.4 % (11.5-14.5); White Blood Count 7.3 K/mm3 (4.5-10.0)
[2022-11-03 18:07] LABS: Alanine Aminotransferase 20 U/L (6-50); Albumin Level 4.7 g/dL (3.5-5.1); Alkaline Phosphatase 71 U/L (38-126); Anion Gap 7 mmol/L (8-16); Aspartate Amino Transferase 20 U/L (17-59); Bilirubin,Total 0.4 mg/dL (0.2-1.3); Blood Urea Nitrogen 27 mg/dL (9-20); Calcium 9.5 mg/dL (8.4-10.2); Carbon Dioxide 30 mmol/L (22-30); Chloride 104 mmol/L (98-107); Estimated CRCL calculation 36 ml/min; Estimated Glomerular Filt Rate 45; Glucose 110 mg/dL (65-110); Potassium 4.2 mmol/L (3.4-5.0); Sodium 141 mmol/L (137-145)
--- NOTE | 2022-11-03 21:08 | ED.NEUROSD ---
HPI - Neuro Symptoms/Deficit General Chief Complaint: Neuro Symptoms/Deficit Stated Complaint: numbness x 2 episodes right hand today Time Seen by Provider: 11/03/22 20:46 History of Present Illness HPI Narrative: Is an 82-year-old male with past history of paroxysmal supraventricular tachycardia, hypertension who presents to the emergency department complaining of 2 episodes of right hand numbness each lasting approximately 15 minutes earlier today. He states the first episode occurred approximately 12 hours ago. He states he was able to move the fingers without difficulty but had numbness. This resolved completely on its own. He states approximately 5 hours prior to arrival, he had a second episode again lasting about 15 minutes with complete resolution. He denies weakness or numbness elsewhere. He denies recent trauma. He states he is on his computer daily. He is left-handed but uses his right hand for the mouse. Related Data Home Medications Medication Instructions Recorded Confirmed vit C 250 mg-vit E 90 mg-zinc 40 1 tablet PO BID 10/09/19 09/02/22 mg-copper 1 [id number] capsule (PreserVision AREDS-2) multivitamin 1 tablet PO DAILY 09/17/20 09/02/22 omeprazole 20 mg tablet,delayed 20 mg PO BID 09/17/20 09/02/22 release aspirin 81 mg tablet,delayed 1 mg PO DAILY 02/23/21 09/02/22 release calcium carbonate 400 mg calcium 400 mg PO DAILY 10/13/22 (1,000 mg) chewable tablet cetirizine 10 mg tablet (Zyrtec) 10 mg PO DAILY PRN 10/13/22 cholecalciferol (vitamin D3) 25 25 mcg PO DAILY 10/13/22 mcg (1,000 unit) capsule Allergies Allergy/AdvReac Type Severity Reaction Status Date / Time guaifenesin Allergy Severe THROAT Verified 11/03/22 16:54 SWELLING pseudoephedrine Allergy Severe THROAT Verified 11/03/22 16:54 SWELLING Review of Systems Review of Systems: CONSTITUTIONAL: Denies fever, chills, or sweats. CARDIOVASCULAR: Denies chest pain, palpitations, or edema. RESPIRATORY: Denies cough or dyspnea. GASTROINTESTINAL: Denies abdominal pain, nausea, vomiting, or diarrhea. GENITOURINARY: Denies dysuria or hematuria. SKIN: Denies rash or itching. MUSCULOSKELETAL: Denies back pain, joint pain, or myalgia. NEUROLOGIC: Intermittent right hand numbness, completely resolved denies headache, dizziness, or weakness. PSYCHIATRIC: Denies anxiety or depression. [facility] Past Medical History Medical History Anemia BPH (benign prostatic hyperplasia) CKD (chronic kidney disease), stage III Esophageal stricture Essential hypertension Essential hypertension Gastric ulcer GERD (gastroesophageal reflux disease) Knee sprain Neck pain Prostate cancer Shoulder pain Surgical History Surgical History History of bilateral cataract extraction History of colonoscopy with polypectomy (01/2021) 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 Brando Ramos Code status: Full code Healthcare power of disability attorney: Split between the patient's 3 sons. Smoking status: Never smoker Second hand tobacco smoke exposure: No Alcohol intake: current Drinks per week: 1 Alcohol use details: He drinks 2-3 glasses a wine a week. Substance use: never Substance use type: does not use Living arrangements: with family Additional living arrangements comments: He lives with his of 63 years. They have 3 sons. Occupation/Education: retired Additional occupation/education comments: He is retired business professional. Gender identity (
[2022-11-03 21:48] VITALS: BP 128/76; PULSE 70; RESP 15; O2SAT 99
== END 2022-11-03 21:50 | disposition home or self-care (01) ==
PROVIDERS: Emergency Medicine; Emergency Provider Preventive Medicine Aerospace Medicine; PCP Emergency Medicine
DX: E86.0 Dehydration (principal); G56.01 Carpal tunnel syndrome, right upper limb; D64.9 Anemia, unspecified; N40.0 Benign prostatic hyperplasia without lower urinary tract symptoms; I12.9 Hypertensive chronic kidney disease with stage 1 through stage 4 chronic kidney disease, or unspecified chronic kidney disease; N18.30 Chronic kidney disease, stage 3 unspecified; K21.9 Gastro-esophageal reflux disease without esophagitis
CPT/HCPCS: 36415; 70450; 80053; 85025; 99284

== ENCOUNTER 2023-05-16 13:21 | Emergency (ER) | payer MEDICARE, SELFPAY ==
[2023-05-16 13:46] VITALS: BP 167/61; PULSE 75; RESP 16; TEMP 37.1; O2SAT 96
--- NOTE | 2023-05-16 15:56 | PC.NURSE ---
pt states he is going to go home and see his drMarlene in the morning
== END 2023-05-16 15:56 | disposition left against medical advice (07) ==
PROVIDERS: PCP Emergency Medicine
DX: R30.0 Dysuria (principal)
CPT/HCPCS: 99199

== ENCOUNTER 2023-07-20 10:54 | Outpatient (CLI) | payer MEDICARE, SELFPAY ==
[2023-07-20 12:18] LABS: SARS-CoV-2 RNA PCR Positive (Negative)
== END 2023-07-20 10:55 | disposition home or self-care (01) ==
PROVIDERS: PCP Emergency Medicine; Visit Provider Emergency Medicine
DX: U07.1 COVID-19 (principal)
CPT/HCPCS: 87635

== ENCOUNTER 2023-07-29 15:56 | Outpatient (CLI) | payer MEDICARE, SELFPAY ==
--- NOTE | ~2023-07-29 | US_ITS ---
EXAMINATION: US renal BI DATE: 07/29/2023 16:45 INDICATION: Chronic kidney disease TECHNIQUE: Multiple ultrasound grayscale images of the kidneys were obtained. COMPARISON: None. FINDINGS: The right kidney measures 9.2 x 4.8 x 4.3 cm. The left kidney measures 10.9 x 5.7 x 4.6 cm. The kidne ys demonstrate normal echogenicity. There is no hydronephrosis in either kidney. No stones identifie d. The bladder is normal bilateral ureteral jets visualized on color Doppler. IMPRESSION: 1. Normal kidneys without hydronephrosis. Reviewed, dictated and finalized at location A. ESS IMPROVEMENT MANAGER
== END 2023-07-29 15:57 | disposition home or self-care (01) ==
PROVIDERS: PCP Emergency Medicine; Visit Provider Internal Medicine Nephrology
DX: I12.9 Hypertensive chronic kidney disease with stage 1 through stage 4 chronic kidney disease, or unspecified chronic kidney disease (principal); N18.31 Chronic kidney disease, stage 3a
CPT/HCPCS: 76775

== ENCOUNTER 2024-11-29 08:35 | Outpatient (RCR) | payer MEDICARE, SELFPAY ==
--- NOTE | 2024-11-29 09:51 | PTOPEVDC ---
Assessment and note entered by Arlet Bonilla, PT Thank you for referring Jaylan Casillas JrMarlene to [facility].? An evaluation has been completed. No further treatment is needed. Evaluation/Discharge Assessment Status Evaluation ICD-10 Condition Codes (PT) Repeated falls R29.6,Abnormalities of gait and mobility R26.9 Onset May 2024 Subjective Information in the past 6 months 2 falls: one fall- walking and just fell forward, no warning; other fall- walking and fell backwards, no warning; both in garage and on concrete- hit head with working outside in yard, wash car- have to sit and take break every 15 minutes, due to tired- pace myself; have been splitting wood from tree cut down in my yard, do a little work when weather is good; follow with the public housing interviewer 2x/year; sometimes have dizziness with getting up too fast from sitting take BP once/week at [facility]- varies 140-160 / 50-60; have a BP monitor at home- not using it took heart medicine about 6 AM today sitting/rest vitals: 133/46 & HR 51; standin/39 & HR 54; after activity & walking 2 minutes 159/35 & HR 61 activity: at home, active, do all yard work, cooking, cleaning tasks--no help needed; have treadmill- do not use; have bicycle that ride outside, up to 25 miles, have not used in 2 years Reported Pain Level Pain Score 0: Self Report Assessment PT Clinical Summary Andrew has the diagnosis of falls. He reports 2 falls when walking, without warning, just fall down. He is active- doing all yard work, splitting logs, all home activities. Reports he paces himself and takes breaks with activity. Also sometimes dizzy with sit to stand transfer. With the evaluation: balance and strength tests were WNL: 5 reps sit/stand time of 15 seconds; Stacy balance score of 53/56; 2 minute walking test distance of 620'; See above BP and HR readings in subjective section. He has a blood pressure monitor at home, but has not been using it. Instructed pt to take his BP 2x/day-- different times during day or when feeling dizzy or funny, write it down and share with dr. Issued him above numbers for his information. And to contact dr if continues to have low numbers of bottom reading. Reinforced safety with mobility: move slowly sit to stand, hold position before moving quickly, rest PRN when fatigued or dizzy. Skilled PT services are not indicated for pt. Education for safety with mobility, monitor BP and cardiac issues. To contact dr with BP readings and any changes. Continue to be active as tolerated, with rest periods PRN. Plan of Care PT Services Indicated No
== END 2024-11-29 10:26 | disposition home or self-care (01) ==
LOC: ANHPT 08:35
PROVIDERS: PCP Emergency Medicine; Visit Provider Emergency Medicine
DX: R29.6 Repeated falls (principal); R53.81 Other malaise
CPT/HCPCS: 97161; 97530